=== PATIENT | male | born 1965 | race Caucasian/White ===

== ENCOUNTER 2023-08-15 11:07 | Outpatient (OUT) | payer BC, SELFPAY ==
--- NOTE | 2023-08-15 11:45 | XR_ITS ---
The [address] [address] Patient Name: MEDINA PEACOCK MRN: [id number] date: 1965 Sex: M Assigned Patient Location: [facility] Current Patient Location: Accession/Order Number: [id number] Exam Date: 08/15/2023 11:40 Report Date: 08/16/2023 06:59 At the request of: SIMON DEWEY Procedure: XR elbow SHREE min 3v EXAM: XR elbow SHREE min 3v HISTORY: Bilateral Elbow Pain COMPARISON: None. TECHNIQUE: Routine views of the XR elbow SHREE min 3v FINDINGS/ XR/XR elbow SHREE min 3v IMPRESSION: 1. No acute fractures. 2. Unremarkable soft tissues. 3. Normal joint spacing. No effusions. Electronically authenticated by: RICHARD BROWN Date: 08/16/2023 06:59
== END 2023-08-15 11:08 | disposition home or self-care (01) ==
LOC: RAD 11:11
PROVIDERS: PCP Orthopaedic Surgery; Visit Provider Orthopaedic Surgery
DX: M25.521 Pain in right elbow (principal); M25.522 Pain in left elbow
CPT/HCPCS: 73080

== ENCOUNTER 2023-10-06 15:11 | Outpatient (OUT) | payer BC, SELFPAY ==
--- NOTE | 2023-10-06 15:15 | MR_ITS ---
The [address] [address] Patient Name: MEDINA PEACOCK MRN: [id number] date: 1965 Sex: M Assigned Patient Location: MRI Current Patient Location: MRI Accession/Order Number: [id number] Exam Date: 10/06/2023 15:35 Report Date: 10/06/2023 17:51 At the request of: KENYA MESA Procedure: MR cervical spine wo/w con MR cervical spine wo/w con, 10/06/2023 3:35 PM EST INDICATION: strain of neck muscle S16.1, cervicalagia M54.2 COMPARISON: This study was compared to the prior CT of the cervical spine dated 03/07/2023. TECHNIQUE: Multiplanar, multisequential MRI images of cervical spine were obtained with without contrast. FINDINGS: There is a status post ACDF of C5-C6 causing magnetic susceptibility artifact that decreases the sensitivity of this study. Please note that MRI is not sensitive for evaluation of the hardware. There is normal physiologic cervical lordosis. The vertebral heights are relatively preserved. The cervicomedullary junction is unremarkable. No definite signal abnormality within the spinal cord is noted. There are mild disc osteophyte complex associated with uncovertebral joint arthrosis from C3 to T1. No significant neuroforaminal narrowing or canal stenosis at the level of C2-C3 is noted. At the level of C3-C4, there is moderate bilateral neuroforaminal narrowing and no canal stenosis. At the level of C4-C5, there is mild bilateral neuroforaminal narrowing and mild canal stenosis. At the level of C5-C6, there is mild bilateral neuroforaminal narrowing and no canal stenosis. At the level of C6-C7, there is mild right and moderate left neuroforaminal narrowing and no canal stenosis. Level of C7-T1 is unremarkable. No definite muscular or ligamentous injury is noted. MR/MR cervical spine wo/w con IMPRESSION: Mild degenerative changes of the cervical spine in particular at C2 C4 and C6-C7. Large heterogeneous right thyroid nodule. Please refer to the ultrasound of thyroid of the same date. Electronically authenticated by: NESSA LOVELACE Date: 10/06/2023 17:51
--- OUTSIDE RECORDS SUMMARY | 2023-10-06 15:15 | XMS_ITS | CCD ---
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 [facility] REASON FOR VISIT (unrecogniz ed section and content) [phone] possible sinus infectionPRESCRIPTION REFILLNo InformationRefillWellnessRefillNo Informationpharmacy changeRefillneck pain FOR RECORDS PERTAINING TO PATIENTS WHO ARE OR HAVE BEEN ENROLLED IN A CHEMICAL DEPENDENCY/SUBSTANCEABUSE PROGRAM, SOME INFORMATION MAY BE OMITTED. This clinical summary was aggregated from multiple sources. Caution should be exercised in using it in the provision of clinical care. This summary normalizes information from multiple sources, and as a consequence, information in this document may materially change the coding, format and clinical context of patient data. In addition, data may be omitted in some cases. CLINICAL DECISIONS SHOULD BE BASED ON THE PRIMARY CLINICAL RECORDS. [facility] [employer] [facility]. provides no warranty or guarantee of the accuracy or completeness of information in this document.
--- NOTE | 2023-10-06 15:16 | US_ITS ---
[address] [address] Patient Name: MEDINA PEACOCK MRN: [id number] date: 1965 Sex: M Assigned Patient Location: MRI Current Patient Location: Accession/Order Number: [id number] Exam Date: 10/06/2023 15:20 Report Date: 10/10/2023 10:59 At the request of: KENYA MESA Procedure: US thyroid EXAMINATION: US thyroid HISTORY: thyroid nodule E04.1 COMPARISON: Ultrasound thyroid 01/29/2022 FINDINGS: RIGHT LOBE: Thick-walled 4.4 x 2.7 x 3.4 cm fluid-filled cyst/mass within mid right lobe, TR 3. Lobe size: 6.8 x 2.8 x 3.7 cm LEFT LOBE: Normal size and echotexture. Lobe size: 4.8 x 1.4 x 1.4 cm ISTHMUS: Normal size and echotexture. Thickness: 2 mm US/US thyroid IMPRESSION: 1. Slight increase in size versus technical variation of the 4.4 cm TR 3 partially cystic and partially solid lesion within the right lobe. By size criteria ultrasound-guided fine-needle aspiration should be considered. TR3 (mildly suspicious): > 1.5 cm, follow-up ultrasound in 1, 3, and 5 years. > 2.5 cm, fine needle aspiration. Electronically authenticated by: SIMON DURAN Date: 10/10/2023 10:59
== END 2023-10-06 15:12 | disposition home or self-care (01) ==
LOC: MRI 15:11
PROVIDERS: PCP Internal Medicine; Visit Provider Internal Medicine
DX: S16.1XXA Strain of muscle, fascia and tendon at neck level, initial encounter (principal); M54.2 Cervicalgia; Z98.1 Arthrodesis status; E04.1 Nontoxic single thyroid nodule
CPT/HCPCS: 72156; 76536; A9575

== ENCOUNTER 2023-10-14 08:35 | Outpatient (OUT) | payer BC, SELFPAY ==
--- OUTSIDE RECORDS SUMMARY | 2023-10-14 09:01 | XMS_ITS | CCD ---
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 Referral Reason Patient being referr ed for neck discomfort Diagnosis 1 Strain of neck muscl e, initial encounter (S16.1XXA) Diagnosis 2 Cervical spondylosis (M47.812) Referral Organization [facility] Referring Provider First Name Andres Referring Provider Last Name Yemi Referring Provider Specialty Internal Me dicine Referred Organization [facility] Referred Address [address] [place], [place],[address] Referred Provider Specialty Pain Medicin e Referral Priority Routine General Notes Mr. Trujillo has hx o f ACDF w/ recent increase in neck pain. His MRI does not correlate with his symptoms and is being referred for treatment Clinical Notes Include MRI neck Additional Source Comments (unrecognized sect ion and content) No Status Records FoundNo Status Records Found INFORMATION SOURCE (unrecogn ized section and content) DATE CREATED AUTHOR 10/22/2021 [facility] DATE CREATED AUTHOR AUTHOR'S ORGANIZ ATION 03/18/2023 [facility] REASON FOR VISIT (unrecogniz ed section and content) [phone] possible sinus infectionPRESCRIPTION REFILLNo InformationRefillWellnessRefillNo Informationpharmacy changeRefillneck painneck painMRI resultsNo Information FOR RECORDS PERTAINING TO PATIENTS WHO ARE [...] BE BASED ON THE PRIMARY CLINICAL RECORDS. [facility]. provides no warranty or guarantee of the accuracy or completeness of information in this document.
[2023-10-14 09:04] LABS: Basophils Absolute Auto 0.1 10^3/uL (0.0-0.1); Eosinophils Absolute Auto 0.1 10^3/uL (0.0-0.7); Eosinophils Percent Auto 2.1 % (0.9-7.0); Hematocrit 42.6 % (42.0-54.0); Hemoglobin 14.6 g/dL (14.0-18.0); Immature Granulocytes Abs Auto 0.01 10^3/uL (0.00-0.03); Immature Granulocytes Pct Auto 0.2 % (0.0-0.5); Lymphocytes Absolute Auto 1.6 10^3/uL (1.2-3.8); Lymphocytes Percent Auto 31.3 % (20.5-60.0); Mean Corpuscular HGB Conc 34.3 g/dL (29.9-35.2); Mean Corpuscular Volume 84.7 fL (80.0-94.0); Monocytes Absolute Auto 0.4 10^3/uL (0.3-0.8); Neutrophils Percent Auto 58.4 % (43.0-75.0); Platelet Count 207 10^3/uL (150-450); Red Blood Count 5.03 10^6/uL (4.70-6.10); Red Cell Distribution Width 12.2 % (11.0-15.0); White Blood Count 5.1 10^3/uL (4.0-11.0)
[2023-10-14 09:06] LABS: Bilirubin Urine NEGATIVE (NEGATIVE); Blood Urine TRACE-I (NEGATIVE); Clarity Urine CLEAR (CLEAR); Color Urine LT. YELLOW (YELLOW); Glucose Urine UA 500 mg/dL (NEGATIVE); Ketones Urine NEGATIVE (NEGATIVE); Leukocyte Esterase Urine NEGATIVE (NEGATIVE); Nitrite Urine NEGATIVE (NEGATIVE); Protein Urine NEGATIVE (NEG/TRACE); Specific Gravity Urine 1.025 (1.005-1.025); Urobilinogen Urine 0.2 EU/dL (0.2-1.0)
[2023-10-14 10:27] LABS: Microalbumin Urine Random <1.3 mg/dL (<=30.0)
[2023-10-14 10:53] LABS: Estimated Average Glucose 192 mg/dL; Glycohemoglobin A1C 8.3 % (4.5-6.2)
[2023-10-14 13:14] LABS: Alanine Aminotransferase 106 U/L (16-63); Albumin Globulin Ratio 1.1; Albumin Level 3.9 g/dL (3.4-5.0); Alkaline Phosphatase 79 U/L (46-116); Anion Gap 10.3; Aspartate Amino Transferase 37 U/L (15-37); BUN Creatinine Ratio 17.8; Bilirubin Total 0.6 mg/dL (0.2-1.0); Calcium 9.4 mg/dL (8.5-10.1); Carbon Dioxide 28.2 mmol/L (21.0-32.0); Chloride 104 mmol/L (98-107); Chol HDL Ratio 3.2; Cholesterol 166 mg/dL (<=200); Estimated GFR (African America >60 (>=60); Estimated GFR (Non-African Ame >60 (>=60); Globulin 3.4 g/dL; Glucose 188 mg/dL (74-106); HDL Cholesterol 52 mg/dL (40-60); LDL Cholesterol Calculated 94.4 mg/dL; Potassium 4.5 mmol/L (3.5-5.1); Sodium 138 mmol/L (136-145); Thyroid Stimulating Hormone 2.266 uIU/mL (0.358-3.740); Total Protein 7.3 g/dL (6.4-8.2); Triglycerides 98 mg/dL (<=150); VLDL CHOLESTEROL 19.6 mg/dL
== END 2023-10-14 08:36 | disposition home or self-care (01) ==
LOC: LAB 08:39
PROVIDERS: PCP Internal Medicine; Visit Provider Internal Medicine
DX: Z00.00 Encounter for general adult medical examination without abnormal findings (principal); R30.0 Dysuria; E04.1 Nontoxic single thyroid nodule
CPT/HCPCS: 36415; 80053; 80061; 81003; 82043; 83036; 84443; 85025; G0103

== ENCOUNTER 2023-10-17 08:06 | Outpatient (RCR) | payer BC, SELFPAY | END 2023-12-20 13:35 | disposition home or self-care (01) | LOC: PT 08:06 | PROVIDERS: PCP Internal Medicine; Visit Provider Internal Medicine | DX: M54.2 Cervicalgia (principal); M47.9 Spondylosis, unspecified | CPT/HCPCS: 97110; 97112; 97140; 97162 ==

== ENCOUNTER 2024-02-21 08:16 | Outpatient (OUT) | payer BC, SELFPAY ==
--- OUTSIDE RECORDS SUMMARY | 2024-02-21 08:34 | XMS_ITS | CCD ---
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 discussed at length safety and security of RX and medications. Due to the high risk nature of this patient's pain medication regimen, frequent office visit refill appointments (every 1-3 months) are medically necessary to monitor for an addiction disorder. Prescribed medication that requires intensive monitoring for toxicity Tramadol. OARRS and most recent UDS were reviewed, discussed and appropriate for medications prescribed. Tramadol pill count completed at today's office visit. Dose: 50 mg 1 tablet three times daily as needed for pain Quantity Dispensed 90 Quantity Remaining 33 Fill date on prescription bottle 11/01/2023 Appropriate-yes Patient educated to bring medication to every office visit. Tramadol was refilled at today's office visit. At this time it does appear that the patient s pain is under adequate control with conservative care. It is felt that we should continue this approach and continue to monitor these symptoms and address them again in the future if they become more problematic. This approach was discussed with the patient and they are in agreement. The spine model was demonstrated and MRI was reviewed and used to explain the condition. Chronic conditions not treated during this visit that affected my overall medical decision making: Anxiety OARRS: Reviewed. Scribe Statement: Scribed for and in the presence of BHASKAR STEPHENS PA-C by Lindsey Mauro CNA. Provider Statement: I, BHASKAR STEPHENS PA-C, personally performed the services described in the documentation, as scribed by Lindsey Mauro CNA in my presence, and it is both accurate and complete. Lindsey Mauro CNA 12/14/23 1342 Bhaskar Stephens PA-C 12/14/23 1420 documented in this encounter [facility] [employer] 11-14-2023 Evaluation note Encounter Date Diagnosis Assessment Notes Nov, COVID- 19 (ICD-1 0 - U07.1) [employer] Other 02-05-2024 Evaluation note* Encounter Date Diagnosis Assessment Notes Treatment Notes Treatment Clinical Notes Nov, Acute non-recurrent maxillary sinusitis (ICD-10 - J01.00) Instructed to use Robitussin or Mucinex for cough, saline or Flonase NS for congestion, Tylenol for pain and fever. Nov, Contact with and (suspected) exposure to covid-19 (ICD-10 - Z20.822) Recommend testing for COVID and to call if positive. Self isolate at home. - Cannot work - avoid contact with others - avoid pets - wipe counters, door knobs if touched - if can't avoid leaving home, must wear mask to protect others - need to stay isolated for 10 days from onset of symptoms - to discontinue isolation must be 5 days AND must be without fever for 24 hours AND symptoms must be improving. Always wear a mask in public places for complete 10 days [employer] Other 01-31-2024 Evaluation note* Encounter Date Diagnosis Assessment Notes Treatment Notes Treatment Clinical Notes Oct, Type 2 diabetes mellitus with hyperglycemia, without long-term current use of insulin (ICD-10 - E11.65) [employer] Other 01-29-2024 Evaluation note* Encounter Date Diagnosis Assessment Notes Treatment Notes Treatment Clinical Notes Oct, Type 2 diabetes mellitus with hyperglycemia, without long-term current use of insulin (ICD-10 - E11.65) [employer] Other 01-24-2024 Evaluation note* Encounter Date Diagnosis Assessment Notes Treatment Notes Treatment Clinical Notes Oct, Type 2 diabetes mellitus with hyperglycemia, without long-term current use of insulin (ICD-10 - E11.65) [employer] Other 01-23-2024 Miscellaneous Notes* Telephone Encounter - Krystal Pierre RN - 11/01/2023 11:15 AM EST Last Office Visit: 08/17/2023 Next Office Visit: 11/16/2023 Last Urine Drug Screen: Lab Results Component Value Date BENZOSCRN Negative 05/17/2023 OARRS appropriate [id number] Telephone encounter Note* Telephone Encounter - Krystal Pierre RN - 11/01/2023 11:15 AM EST Last Office Visit: 08/17/2023 Next Office Visit: 11/16/2023 Last Urine Drug Screen: Lab Results Component Value Date BENZOSCRN Negative 05/17/2023 OARRS appropriate [facility] [employer] [id number] Evaluation note* Encounter Date Diagnosis Assessment Notes Treatment Notes Treatment Clinical Notes Oct, Controlled type 2 diabetes mellitus with hyperglycemia, without long-term current use of insulin (ICD-10 - E11.65) [employer] Other 01-08-2024 Evaluation note* Encounter Date Diagnosis Assessment Notes Treatment Notes Treatment Clinical Notes Oct, Type 2 diabetes mellitus with hyperglycemia, without long-term current use of insulin (ICD-10 - E11.65) [employer] Other 01-07-2024 Evaluation note* Encounter Date Diagnosis Assessment Notes Treatment Notes Treatment Clinical Notes Oct, Thyroid nodule (ICD-10 - E04.1) Thyroid US: - 4.5 x 3.6 x 2.7cm 2015 - 3.8 x 3.6 x 2.7cm 3.8cm 2021 - 4.4 x 3.4 x 2.7 2022 [employer] Other 01-05-2024 Evaluation note* Encounter Date Diagnosis Assessment Notes Treatment Notes Treatment Clinical Notes Oct, Type 2 diabetes mellitus with hyperglycemia, without long-term current use of insulin (ICD-10 - E11.65) [employer] Other 01-03-2024 Evaluation note* Encounter Date Diagnosis Assessment Notes Treatment Notes Treatment Clinical Notes Oct, Thyroid nodule (ICD-10 - E04.1) Thyroid US: - 4.5 x 3.6 x 2.7cm 2015 - 3.8 x 3.6 x 2.7cm 3.8cm 2021 - 4.4 x 3.4 x 2.7 2022 Referral to ENT for opinion. Repeat thyroid US in 3-6mo vs repeat FNA [employer] Other 01-02-2024 Evaluation note* Encounter Date Diagnosis Assessment Notes Treatment Notes Treatment Clinical Notes Oct, Thyroid nodule (ICD-10 - E04.1) Thyroid US: - 4.5 x 3.6 x 2.7cm 2015 - 3.8 x 3.6 x 2.7cm 3.8cm 2021 - 4.4 x 3.4 x 2.7 2022 [employer] Other 01-01-2024 Evaluation note* Encounter Date Diagnosis Assessment Notes Treatment Notes Treatment Clinical Notes Oct, Thyroid nodule (ICD-10 - E04.1) Thyroid US: - 4.5 x 3.6 x 2.7cm 2015 - 3.8 x 3.6 x 2.7cm 3.8cm 2021 - 4.4 x 3.4 x 2.7 2022 [employer] Other 12-18-2023 Evaluation note* Encounter Date Diagnosis Assessment Notes [...] use, the patient reduces the risk for SD, CVA, HTN, cardiac dysrhythmias and sudden cardiac [...] S/P cervical spinal fusion (ICD-10 - Z98.1) [employer] Other 08-17-2023 Evaluation note* Encounter Date Diagnosis Assessment Notes Treatment Notes Treatment Clinical Notes May, Lateral epicondylitis, right elbow (ICD-10 - M77.11) [employer] Other 06-30-2023 Evaluation note* Encounter Date Diagnosis Assessment Notes Treatment Notes Treatment Clinical Notes Mar, Pure hypercholestero lemia (ICD-10 - E78.00) [employer] Other 04-28-2023 NotePROCEDURE: XR FOOT LT MIN 3 VIEWS HISTORY: Pain ; left heel pain for 6 weeks COMPARISON: None. FINDINGS: BONES:No fracture, acute abnormality, or significant arthropathy. SOFT TISSUES:No visible soft tissue swelling. EFFUSION:None visible. OTHER: Negative. IMPRESSION: 1. Normal examination. Electronically authenticated by: JOHN RED Date: 2023-02-04 07:[address] [place], [place] 3354304-03-2023 Evaluation note* Encounter Date Diagnosis Assessment Notes [...] use, the patient reduces the risk for SD, CVA, HTN, cardiac dysrhythmias and sudden cardiac [...] (prost ate specific antigen) (ICD-10 - Z12.5) [employer] Other 03-08-2023 Evaluation note* Encounter Date Diagnosis Assessment Notes Treatment Notes Treatment Clinical Notes Dec, Controlled type 2 diabetes mellitus with hyperglycemia, without long-term current use of insulin (ICD-10 - E11.65) [employer] Other 02-23-2023 Evaluation note* Encounter Date Diagnosis [...] [ ] Infections may elevate BS temporarily [employer] Other 02-23-2023 Evaluation note* Encounter Date Diagnosis Assessment Notes Treatment Notes Treatment Clinical Notes Nov, Acute bronchitis due to other specified organisms (ICD-10 - J20.8) [employer] Other 07-15-2021 NoteChief Complaint referral for suprapubic [...] Stopped age 49 Years., (more content not included)...[facility] SystemComment on above:Result Comment: Electronically Signed By: KIYA DIAZ, Reji oMntoya\Date and Time Signed: 04/23/21 10:32 [id number] NoteGastroenterology Upper Endoscopy, Adult Upper endoscopy is [...] including vitamins, herbs, eye drops, creams, and jlxb-ubz-lqmsxic medicines. ? Any problems you or family [...] tells you to take them. ? Taking hhgz-hac-xnfhamt medicines, vitamins, herbs, and supplements. General instructions [...] Document Released: 09/23/2001 [employer] (more content not included)...[facility] Other Evaluation note* Diagnosis Right bicipital tenosynovitis Impingement syndrome of right shoulder region [facility] Diagnosis Chronic, continuous use of opioids- Primary Right bicipital tenosynovitis Impingement syndrome of right shoulder region documented in this encounter [facility] [employer] SystemHistory general Narrative - Reported* Type Description Date [...] Colonoscopy 11/2015 Hospitalization History see surgical history [employer] Other History general Narrative - Reported* Type [...] Colonoscopy 11/2015 Hospitalization History see surgical history [employer] Other InstructionsNot on filedocumented in this encounter [facility] SystemInstructionsNot on filedocumented in this encounter [facility] SystemInstructionsNot on filedocumented in this encounter [facility] SystemReason for referral (narrative)* Reason Referral for right s ided thyroid mass Diagnosis 1 Thyroid nodule (E04. 1) Referral Organization [facility] simran Referring Provider First Name Andres Referring Provider Last Name Yemi Referring Provider Specialty Internal Me dicine Referred Organization [facility] Referred Provider Carolann Dasilva Referred Address ,[place], [place],[address] Referred Provider Specialty Ear, Nose an d Throat Referral Priority Routine General Notes Mr. Trujillo is being referred for evaluation of a right sided thyroid mass. This has been present since 2015 without significant change. It has been recommended, that a repeat FNA be scheduled. I am referring Mr. Trujillo for an opinion on FNA vs further observation. Clinical Notes Include all three th yroid US reports [employer] Other Summary Purpose Family History No Family History Records FoundNo Family History Records FoundNo Family History Records FoundNo Family History Records Found Advance Directives No Advanced Directives Records FoundNo Advanced Directives Records FoundNo Advanced Directives Records FoundNo Advanced Directives Records Found Reason for Referral Reason *FU 10/18 Patient being referred for neck discomfort Diagnosis 1 Strain of neck muscl e, initial encounter (S16.1XXA) Diagnosis 2 Cervical spondylosis (M47.812) Referral Organization [facility] Referring Provider First Name Andres Referring Provider Last Name Yemi Referring Provider Specialty Internal Me dicine Referred Organization [facility] Referred Provider Cade Stephenson Referred Address [address] [place], [place],[address] Referred Provider Specialty Pain Medicin e Referral Priority Routine General Notes Mr. Trujillo has hx o f ACDF w/ recent increase in neck pain. His MRI does not correlate with his symptoms and is being referred for treatment La Nena Carrion 10/11/2023 07:19:30 AM >received today, attachments made, notes locked, referral faxed Clinical Notes Include MRI neck f: [id number] Reason Patient being referr ed for neck discomfort Diagnosis 1 Strain of neck muscl e, initial encounter (S16.1XXA) Diagnosis 2 Cervical spondylosis (M47.812) Referral Organization [facility] Referring Provider First Name Andres Referring Provider Last Name Yemi Referring Provider Specialty Internal [facility] Referred Organization [facility] Referred Address [address] [place], [place],[address] Referred Provider Specialty Pain Medicin e Referral Priority Routine General Notes Mr. Trujillo has hx o f ACDF w/ recent increase in neck pain. His MRI does not correlate with his symptoms and is being referred for treatment Clinical Notes Include MRI neck Additional Source Comments (unrecognized sect ion and content) No Status Records FoundNo Status Records FoundNo Status Records FoundNo Status Records Found INFORMATION SOURCE (unrecogn ized section and content) DATE CREATED AUTHOR 10/22/2021 [facility] DATE CREATED AUTHOR AUTHOR'S ORGANIZ ATION 03/18/2023 [facility] DATE CREATED AUTHOR AUTHOR'S ORGANIZ ATION 12/22/2023 [facility] DATE CREATED AUTHOR AUTHOR'S ORGANIZ ATION 12/28/2023 [facility] Specialists EPIC REASON FOR VISIT (unrecogniz ed section and content) Reason Onset Date Comments Med Refill 11/01/2023 Care Teams (unrecognized sec tion and content) [employer] 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 [employer] provides no warranty or guarantee of the accuracy or completeness of information in this document.
[2024-02-21 09:19] LABS: Alanine Aminotransferase 78 U/L (16-63); Albumin Globulin Ratio 1.2; Albumin Level 3.9 g/dL (3.4-5.0); Alkaline Phosphatase 93 U/L (46-116); Anion Gap 14.7; Aspartate Amino Transferase 37 U/L (15-37); BUN Creatinine Ratio 21.4; Bilirubin Total 0.8 mg/dL (0.2-1.0); Calcium 9.4 mg/dL (8.5-10.1); Carbon Dioxide 26.2 mmol/L (21.0-32.0); Chloride 104 mmol/L (98-107); Estimated GFR (African America >60 (>=60); Estimated GFR (Non-African Ame >60 (>=60); Globulin 3.3 g/dL; Glucose 175 mg/dL (74-106); Magnesium 2.3 mg/dL (1.8-2.4); Potassium 4.9 mmol/L (3.5-5.1); Sodium 140 mmol/L (136-145); Thyroid Stimulating Hormone 2.351 uIU/mL (0.358-3.740); Total Protein 7.2 g/dL (6.4-8.2)
== END 2024-02-21 08:17 | disposition home or self-care (01) ==
LOC: LAB 08:18
PROVIDERS: PCP Internal Medicine; Visit Provider Internal Medicine
DX: R25.2 Cramp and spasm (principal); R53.83 Other fatigue
CPT/HCPCS: 36415; 80053; 83735; 84443

== ENCOUNTER 2024-04-27 13:45 | Outpatient (RCR) | payer BC, SELFPAY | END 2024-06-14 07:55 | disposition home or self-care (01) | LOC: PT 13:45 | PROVIDERS: PCP Internal Medicine; Visit Provider Internal Medicine | DX: M54.2 Cervicalgia (principal) | CPT/HCPCS: 20561; 97110; 97140; 97162 ==

== ENCOUNTER 2024-10-08 09:35 | Outpatient (OUT) | payer BC, SELFPAY ==
--- OUTSIDE RECORDS SUMMARY | 2024-10-08 09:53 | XMS_ITS | CCD ---
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 above: Performed By: #### L IPA, LIVER #### [facility] [address] [place] [address] Dr. Castillo Diamond AST [Catalytic activity/Vol] 26 U/L Normal 15-37 [facility] Comment on above: Performed By: #### L IPA, LIVER #### [facility] [address] [place] [address] Dr. Castillo Diamond BILI, CONJUGATED 0.1 mg/dL Normal 0.0-0.2 [facility] Comment on above: Performed By: #### L IPA, LIVER #### [facility] [address] [address] [address] Castillo Diamond Bilirubin [Mass/Vol] 0.5 mg/dL Normal 0.2-1.0 [facility] Comment on above: Performed By: #### L IPA, LIVER #### [facility] [address] [address] [address] Castillo Diamond Globulin (S) [Mass/Vol] 3.8 g/dL Normal [facility] Comment on above: Performed By: #### L IPA, LIVER #### [facility] [address] [place], [place] [address] Dr. Castillo Diamond Protein [Mass/Vol] 7.7 g/dL Normal 6.4-8.2 [facility] Comment on above: Performed By: #### L IPA, LIVER #### [facility] [address] [place], [place] [address] Dr. Castillo Diamond XR HAND RT MIN [...] ANGELO MTZ Date: 2022-05-19 15:04 Normal [facility] General Surgery Office/Clini c Noteon 06-13-2021 [...] virus vaccine, live, trivalent 08/13/2019 Recorded Normal [facility] Comment on above: Result Comment: Elec tronically Signed By: KIYA DIAZ, Reji Montoya\Date and Time Signed: 06/13/21 09:00 EDT Ambulatory Clinical Summaryo n 06-05-2021 Ambulatory Clinical Summary {[id number]}CD:6143 68 Normal [facility] Outside Colonoscopyon 2020 Outside Colonoscopy [id number]#[id number]:127 Normal [facility] Pathology Noteon 05-26-2021 Pathology Note [id number]:127 Normal [facility] Pathology Noteon 05-22-2021 Pathology Note [id number]#[id number]:127 [facility] Consent for Procedure/Surger yon 04-23-2021 Consent for Procedure/Surgery [id number]:127 Normal [facility] Immunization Recordson 04-23 Immunization Records [id number]#[id number]:127 Normal [facility] Ambulatory Clinical Summaryo n 04-22-2021 Ambulatory Clinical Summary {[id number]}CD:6143 68 Normal [facility] Vital Signs Date Time Vital Sign Value Performing Clinician Facility 08-08-2024 09:29-0400 Body height 185.4 cm Bhaskar Stephens PA-C Work Phone: [facility] 08-08-2024 09:29-0400 Body mass index (BMI) [Ratio] 30.61 kg/m2 Bhaskar Verhoff PA-C Work Phone: [facility] 08-08-2024 09:29-0400 Body weight 105.23 kg Bhaskar Verhoff PA-C Work Phone: [facility] 08-08-2024 09:29-0400 Diastolic blood pressure 87 mm[Hg] Bhaskar Verhoff PA-C Work Phone: [facility] 08-08-2024 09:29-0400 Heart rate 66 /min Bhaskar Verhoff PA-C Work Phone: [facility] 08-08-2024 09:29-0400 SaO2% (BldA) [Mass fraction] 99 % Bhaskar Verhoff PA-C Work Phone: [facility] 08-08-2024 09:29-0400 Systolic blood pressure 139 mm[Hg] Bhaskar Verhoff PA-C Work Phone: [facility] 06-26-2024 08:57-0400 Body height 182.88 cm [facility] 06-26-2024 08:57-0400 Body mass index (BMI) [Ratio] 31.6 kg/m2 [facility] 06-26-2024 08:57-0400 Body weight 105.68 kg [facility] 06-26-2024 08:57-0400 Diastolic blood pressure 80 mm[Hg] [facility] 06-26-2024 08:57-0400 Heart rate 73 /min [facility] 06-26-2024 08:57-0400 Respiratory rate 12 /min [facility] 06-26-2024 08:57-0400 Systolic blood pressure 130 mm[Hg] [facility] 12-14-2023 12:55-0500 Body height 185.4 cm Bhaskar Verhoff PA-C Work Phone: [facility] 12-14-2023 12:55-0500 Body mass index (BMI) [Ratio] 31.8 kg/m2 Bhaskar Verhoff PA-C Work Phone: [facility] 12-14-2023 12:55-0500 Body weight 109.32 kg Bhaskar Verhoff PA-C Work Phone: [facility] 12-14-2023 12:55-0500 Diastolic blood pressure 93 mm[Hg] Bhaskar Verhoff PA-C Work Phone: [facility] 12-14-2023 12:55-0500 Heart rate 82 /min Bhaskar Verhoff PA-C Work Phone: [facility] 12-14-2023 12:55-0500 Respiratory rate 16 /min Bhaskar Verhoff PA-C Work Phone: [facility] 12-14-2023 12:55-0500 SaO2% (BldA) [Mass fraction] 99 % Bhaskar Verhoff PA-C Work Phone: [facility] 12-14-2023 12:55-0500 Systolic blood pressure 135 mm[Hg] Bhaskar Verhoff PA-C Work Phone: [facility] 10-16-2023 18:45-0500 Body height 182.88 cm Andres Ball Other [facility] Other 09-26-2023 15:45-0500 Body height 182.88 cm Andres Ball Other [facility] Other 09-26-2023 15:45-0500 Body mass index (BMI) [Ratio] 32.79 kg/m2 Andres Ball Other [facility] Other 09-26-2023 15:45-0500 Body weight 109.68 kg Andres Ball Other [facility] Other 09-26-2023 15:45-0500 Diastolic blood pressure 82 mm[Hg] Andres Ball Other [facility] Other 09-26-2023 15:45-0500 Systolic blood pressure 122 mm[Hg] Andres Ball Other [facility] Other 01-10-2023 11:00-0400 Body height 182.88 cm Andres Ball Other [facility] Other 01-10-2023 11:00-0400 Body mass index (BMI) [Ratio] 33.2 kg/m2 Andres Ball Other [facility] Other 01-10-2023 11:00-0400 Body weight 111.04 kg Andres Ball Other [facility] Other 01-10-2023 11:00-0400 Diastolic blood pressure 82 mm[Hg] Andres Ball Other [facility] Other 01-10-2023 11:00-0400 Respiratory rate 12 /min Andres Ball Other [facility] Other 01-10-2023 11:00-0400 Systolic blood pressure 122 mm[Hg] Andres Ball Other [facility] Other Encounters Encounter Date Encounter Type Care Provider Facility Start: 08-22-2024 End: 08-30-2024 Telephone encounter Suzi Caban RN [facility] Start: 08-08-2024 End: 08-08-2024 Office outpatient visit 25 minutes Bhaskar Stephens PA-C Work Phone: [facility] Comment on above: Biceps tendinitis of right upper extremity (Primary Dx); Impingement syndrome of right shoulder Start: 08-08-2024 End: [facility]: 08-06-[facility]24 End: 08-07-2024 Refill Irene Bryson RN [facility] Start: 07-24-2024 End: 07-24-2024 Refill Irene Bryson RN [facility] Comment on above: Right bicipital teno synovitis; Impingement syndrome of right shoulder region Start: 06-26-2024 End: 06-26-2024 ambulatory [facility] Work Phone: Start: 06-26-2024 End: 06-26-2024 Patient encounter procedure [facility] Work Phone: Start: 05-09-2024 End: 05-09-2024 ambulatory [facility] Start: 12-27-2023 End: 12-27-2023 ambulatory CAROLANN H VIDYA Not Available Start: 12-14-2023 End: 12-14-2023 ambulatory [facility] Start: 12-14-2023 Telephone encounter Lindsey Zunilda COPE [facility] Start: 12-14-2023 End: 12-14-2023 Office outpatient visit 25 minutes Bhaskar Stephens PA-C Work Phone: [facility] Comment on above: Chronic, continuous use of opioids (Primary Dx); Right bicipital tenosynovitis; Impingement syndrome of right shoulder region Start: 12-14-2023 End: 12-14-2023 ambulatory [facility] Start: 11-14-2023 End: 11-14-2023 ambulatory Andres Bragg [facility] Other Start: 11-14-2023 Office outpatient vi sit 15 minutes Andres Bragg [facility] Start: 11-14-2023 Telephone encounter Andres Bragg [facility] Start: 11-10-2023 End: 11-10-2023 ambulatory Andres Bragg Other [facility] Other Start: 11-10-2023 Telephone encounter Andres NIELSEN [facility] Start: 11-09-2023 End: 11-09-2023 ambulatory Andres Ball Other [facility] Other Start: 11-09-2023 Telephone encounter Andres Ball [facility] Start: 11-07-2023 End: 11-07-2023 ambulatory Andres Ball Other [facility] Other Start: 11-07-2023 Telephone encounter Andres Ball [facility] Start: 11-02-2023 End: 11-02-2023 ambulatory Andres Ball Other [facility] Other Start: 11-02-2023 Telephone encounter Andres Bragg [facility] Start: 11-01-2023 David Pierre RN [facility] Comment on above: Right bicipital teno synovitis; Impingement syndrome of right shoulder region Start: 10-19-2023 End: 10-19-2023 ambulatory Andres Ball Other [facility] Other Start: 10-19-2023 Telephone encounter Andres Ball [facility] Start: 10-17-2023 End: 10-17-2023 ambulatory Andres Ball Other [facility] Other Start: 10-17-2023 Telephone encounter Andres Ball [facility] Start: 10-16-2023 End: 10-16-2023 ambulatory Andres Ball Other [facility] Other Start: 10-16-2023 Telephone encounter Andres Ball [facility] Start: 10-14-2023 End: 10-14-2023 ambulatory Andres Ball Other [facility] Other Start: 10-14-2023 Telephone encounter Andres Ball [facility] Start: 10-12-2023 End: 10-12-2023 ambulatory Andres Bragg Other [facility] Other Start: 10-12-2023 Telephone encounter Andres Bragg [facility] Start: 10-11-2023 End: 10-11-2023 ambulatory Andres Bragg Other [facility] Other Start: 10-11-2023 Telephone encounter Andres Ball [facility] Start: 10-10-2023 End: 10-10-2023 ambulatory Andres Bragg Other [facility] Other Start: 10-10-2023 Telephone encounter Andres Bragg [facility] Start: 10-07-2023 End: 10-07-2023 ambulatory Andres Bragg Other [facility] Other Start: 10-07-2023 Telephone encounter Andres Ball [facility] Start: 09-26-2023 End: 09-26-2023 ambulatory Andres Bragg Other [facility] Other Start: 09-26-2023 Office outpatient vi sit 25 minutes Andres Bragg [facility] Start: 06-14-2023 End: 06-14-2023 ambulatory Andres Bragg [facility] Other Start: 06-14-2023 Telephone encounter Andres Bragg [facility] Start: 05-26-2023 End: 05-26-2023 ambulatory Andres Bragg Other [facility] Other Start: 05-26-2023 Telephone encounter Andres Ball [facility] Start: 04-08-2023 End: 04-08-2023 ambulatory Andres Yemi Other [facility] Other Start: 04-08-2023 Telephone encounter Andres Bragg [facility] Start: 03-07-2023 End: 03-07-[address] ANDRES BRAGG Facility:[facility] Start: 02-10-2023 ambulatory TROY Yarbrough y:[facility] Start: 02-03-2023 End: 02-04-[address] ANDRES BRAGG Facility:[facility] Start: 01-10-2023 End: 01-10-2023 ambulatory Andres Bragg [facility] Other Start: 01-10-2023 Encounter for genera l adult medical examination without abnormal findings Andres Bragg [facility] Start: 01-10-2023 Periodic preventive med est patient 40-64yrs Andres Bragg [facility] Start: 12-15-2022 End: 12-15-2022 ambulatory Andres Bragg [facility] Other Start: 12-15-2022 Telephone encounter Andres Bragg [facility] Start: 12-02-2022 End: 12-02-2022 ambulatory Andres Bragg [facility] Other Start: 12-02-2022 Office outpatient vi sit 15 minutes Andres Bragg [facility] Start: 12-02-2022 Telephone encounter Andres Bragg [facility] Start: 10-14-2022 End: 10-15-[address] ANDRES BRAGG Facility:[facility] Start: 09-24-2022 End: 09-25-[address] ANDRES BRAGG Facility:[facility] Start: 09-17-2022 End: 09-18-[address] ANDRES BRAGG Facility:[facility] Start: 05-19-2022 End: 05-19-2022 ambulatory JIM SHORT . Facility:[facility] Plan of Treatment Date Care Activity Detail Author Start: 05-19-2032 DTaP,Tdap and Td Vac cines (2 - Tdap) DTaP,Tdap and Td Vaccines (2 - Tdap) [facility] Start: 08-08-2025 Adult BMI Screening Adult BMI Screen ing [facility] Start: 08-08-2025 Tobacco Screening Tobacco Screening [facility] Start: 05-09-2025 Adult BMI Screening Adult BMI Screen ing [facility] Start: 05-09-2025 Tobacco Screening Tobacco Screening [facility] Start: 12-13-2024 Adult BMI Screening Adult BMI Screen ing [facility] Start: 12-13-2024 Tobacco Screening Tobacco Screening [facility] Start: 11-14-2024 End: 11-14-2024 Patient encounter procedure 11/14/2024 9:30 AM EST Office Visit [facility] [address] [place] [address] Bhaskar Stephens PA-C [address] [place] [address] [facility] Start: 08-17-2024 Adult BMI Screening Adult BMI Screen ing [facility] Start: 08-17-2024 Tobacco Screening Tobacco Screening [facility] Start: 08-08-2024 End: 08-08-2024 Patient encounter procedure 08/08/2024 9:30 AM EDT Office Visit [facility] [address] [place] [id number] Bhaskar Stephnes PA-C [address] [place] [address] [facility] Start: 06-10-2024 COVID-19 Vaccine ( season) COVID-19 Vaccine ( season) [facility] Start: 06-10-2024 COVID-19 Vaccine ( season) COVID-19 Vaccine ( season) [facility] Start: 06-10-2024 Influenza vaccination Influenza Vacc ine [facility] Start: 03-14-2024 End: 03-14-2024 Patient encounter procedure 03/14/2024 9:30 AM EDT Office Visit [facility] [address] [place] [id number] Bhaskar Stephens PA-C [address] [place] [address] [facility] Start: 11-16-2023 End: 11-16-2023 Patient encounter procedure 11/16/2023 8:30 AM EST Office Visit [facility] [address] [place] [id number] Bhaskar Stephens, ATIF [address] [place] [address] [facility] Start: 06-10-2023 COVID-19 Vaccine ( season) COVID-19 Vaccine ( season) [facility] Start: 06-10-2023 Influenza vaccination Influenza Vacc ine [facility] Start: 2014 Administration of varicella zoster vaccine Zoster (Shingles) Vaccine (1 of 2) [facility] Start: 1982 Adult BMI Follow Up Plan Adult BMI Follow Up Plan [facility] Start: 1976 Depression Screening Depression Scre ening [facility] Comprehensive metabo lic 2000 panel - Serum or Plasma [facility] End: 08-08-2025 Controlled Substance Monitoring, U Controlled Substance Monitoring, U Lab Routine Biceps tendinitis of right upper extremity Impingement syndrome of right shoulder 1 Occurrences starting 08/08/2024 until 08/08/2025 [facility] Work Phone: Comment on above: 1 Occurrences starti ng 08/08/2024 until 08/08/2025 Microalbumin [Mass/volume] in Urine [facility] Immunizations Immunization Date Immunization Notes Care Provider Fa cilimerlin 06-26-2024 influenza, seasonal, injectable, preservative free [facility] 08-18-2023 influenza virus vaccine, unspecified formulation Irene Bryson RN [facility] 07-29-2022 influenza virus vaccine, split virus (incl. purified surface antigen) Andres Bragg Other [facility] Other 07-29-2022 influenza, injectabl e, quadrivalent, preservative free Andres Bragg Other [facility] 07-29-2022 influenza virus vaccine, unspecified formulation Krystal Pierre RN [facility] 05-19-2022 diphtheria, tetanus toxoids and acellular pertussis vaccine, unspecified formulation Andres Bragg Other [facility] 07-22-2021 influenza virus vaccine, split virus (incl. purified surface antigen) Andres Bragg Other [facility] Other 07-22-2021 influenza virus vaccine, unspecified formulation [facility] 01-13-2021 COVID-19 Vaccine Pfi zer - Documentation Purposes Only Andres Bragg Other [facility] 12-22-2020 COVID-19 Vaccine Pfi zer - Documentation Purposes Only Andres Bragg Other [facility] 07-26-2018 pneumococcal polysaccharide vaccine, 23 valent Andres Bragg Other [facility] 06-10-2016 influenza virus vaccine, split virus (incl. purified surface antigen) Andres Bragg Other [facility] Other 06-10-2016 influenza virus vaccine, unspecified formulation [facility] Payers Date Payer Category Payer [facility] [id number] 2019 Unknown [id number] 2003 Worker's Compensation 1.2.84 [id number] 2003 Unknown [id number] 1964 Unknown [id number] [id number]. 2.593 1964 Unknown [id number] 2.16.840.1.379659.3.579. 2.593 1964 Unknown [id number] 2.16.840.1.793782.3.579. 2.593 1964 Unknown [id number] 2.16.840.1.272188.3.579. 2.593 1964 Unknown [id number] 2.16.840.1.037260.3.579. 2.593 1964 Unknown [id number] 2.16.840.1.320632.3.579. 2.593 1964 Unknown [id number] 2.16.840.1.006223.3.579. 2.593 1964 Unknown [id number] 2.16.840.1.628228.3.579. 2.1259 1964 Unknown [id number] 2.16.840.1.562212.3.579. 2.1286 1964 Unknown [id number] 2.16.840.1.581949.3.579. 2.1286 1964 Unknown [id number] 2.16.840.1.310928.3.579. 2.1286 1964 Unknown [id number] 2.16.840.1.243064.3.579. 2.1286 1959 Medicare [id number] Worker's Comp, Other (unspecified) WORKER'S COMPENSATION - GENERIC PLAN [id number] Worker's Compensation [facility] [id number] Social History Date Type Detail Facility Start: 10-22-2020 End: 08-17-2023 Sex Assigned At [facility] Brendan bhagat [id number] Other Start: 08-17-2023 Tobacco smoking stat [facility] Ex-smoker [facility] History of tobacco use Current smoker [facility] Start: 08-17-2023 Tobacco use and exposure Smokeless tobacco non-user [facility] Start: 08-17-2023 End: 08-08-2024 Alcohol intake Current [facility] (finding[facility] Start: 10-22-2020 End: 08-17-2023 Alcohol intake [facility] Start: 04-14-2017 Alcohol Comment rare [facility] Start: 1965 Sex Assigned At Not on file P [facility] Start: 1965 Sex Assigned At Male F [facility] Start: 05-15-2015 Sex Male (finding) [facility] Medical Equipment Procedure Code Equipment Code Equipment Original Text Equi pment Identifier Dates one touch basic test strips Clinical Notes 04-23-2021 to 08-22-2024 Telephone Encounter - Suzi Caban RN - 08/22/2024 3:35 PM ESTTelephone Encounter - Bhaskar Stephens PA-C - 08/22/2024 3:35 PM Caden Stephens PA-C - 08/08/2024 9:30 AM EDT Note Date & Type Note Facility 08-22-2024 Miscellaneous Notes UDS was collected and sent to lab 08/08/2024. As of 08/14/2024 the order had not been released. Call was placed to [email or web address] lab to follow up. [employer] Installer spoke with Abdirhaman who then spoke with his coworkers in the lab regarding this matter. The urine could not be found. This has been discussed with Lab day habilitation supervisor and Shelly. The new process will be that going forward the dental lab technician will come and warehouse picker specimens directly from our department. Noted documented in this encounter [facility] 08-22-2024 Telephone encounter Note UDS was collected and sent to lab 08/08/2024. As of 08/14/2024 the order had not been released. Call was placed to [facility] lab to follow up. [employer] spoke with Abdirahman who then spoke with his coworkers in the lab regarding this matter. The urine could not be found. This has been discussed with Lab day habilitation supervisor and Shelly. The new process will be that going forward the dental lab technician will come and warehouse picker specimens directly from our department. [facility] 08-22-2024 Telephone encounter Note Noted [facility] 08-08-2024 History of Presen t illness Narrative [facility] [address] [place] [address] Patient: Kerri Trujillo Sex: male : 1965 Age: 58 y.o. PCP: ANDRES BRAGG, DO 08/08/2024 Kerri Trujillo is here for a 3 month follow up for his [employer] work injury. He reports his pain remains about the same. Date of onset of pain: 2002 , pain has lasted greater than 3 months. Chief Complaint Patient presents with Neck Pain Shoulder Pain HPI: Neck Pain This is a chronic [...] The pain is Same all the time. Associated symptoms include headaches and weakness (Wally Shoulders). Pertinent negatives include no chest pain, fever, numbness, pain with swallowing, photophobia, tingling or visual change. He has tried NSAIDs and ice (PT 07/2016 w/ slight relief. Ice/heat, muscle relaxants, NSAIDs, acetaminophen, rest with slight relief. Tramadol w/ moderate relief) for the symptoms. The treatment provided moderate relief. Shoulder Pain The pain is present [...] Tramadol with moderate relief. The treatment provided moderate relief. His past medical history is significant [...] 11/03/2018 Performed by Phani López MD at [facility] CUFF REPAIR Right 2004,'07,'09,'12 3 tears repaired and anchor insert ROTATOR CUFF REPAIR Left 2014 Allergies Allergen Reactions Penicillin Other (See Comments) Codeine Rash Family History Problem Relation Age of Onset Heart disease Father Diabetes Brother Social History Socioeconomic History Marital status: Single Spouse name: Not on file Number of children: Not on file Years of education: Not on file Highest education level: Not on file Occupational History Not on file Tobacco Use Smoking status: Former Smokeless tobacco: Never Vaping Use Vaping status: Never Used Substance and Sexual Activity Alcohol use: Yes Alcohol/week: 0.0 standard drinks of alcohol Comment: rare Drug use: No Sexual activity: Defer Other Topics Concern Not on file Social History Narrative Not on file Social Drivers of Health Financial Resource Strain: Not on file Food Insecurity: No Food Insecurity (08/08/2024) Hunger Screening Food Insecurity - Worry: Never True Food Insecurity - Inability: Never True Transportation Needs: Not on file Physical Activity: Not on file Stress: Not on file Social Connections: Not on file Interpersonal Safety: Not on file Housing Instability: Not on file Review of Systems Constitutional: Negative for chills and fever. HENT: Negative. Eyes: Negative for photophobia. Respiratory: Negative for cough and shortness of breath. Cardiovascular: Negative for chest pain. Gastrointestinal: Negative. Endocrine: Negative. Genitourinary: Negative. Musculoskeletal: Positive for neck pain. Negative for stiffness. Wally Shoulders Skin: Negative. Allergic/Immunologic: Negative. Neurological: Positive for weakness (Wally Shoulders) and headaches. Negative for tingling and numbness. Hematological: Negative. Psychiatric/Behavioral: Negative. Vital Signs: BP 139/87 (BP Site: Left Arm) Pulse 66 Ht 185.4 cm (6' 1 ) Wt 105.2 kg (232 lb) SpO2 99% BMI 30.61 kg/m Physical Exam: GENERAL - Healthy patient [...] obvious deficits in memory, reasoning, or intellect. Cervical: SKIN - No rashes or bruising in the area of the patient s pain. LYMPH NODES - demonstrate no obvious enlargement. EXTREMITIES - Upper extremities are warm, with minimal edema and palpable pulses. No Significant tenderness to palpation noted in the cervical spine and paraspinal musculature. Minimal pain is elicited with flexion, extension, and lateral rotation of the cervical spine. Range of motion is not diminished with these motions. Facet palpation is noted to be minimally painful, but not concordant with the patient s normal pain complaints. STRENGTH - noted to be 5 out of 5 all muscle groups bilateral upper extremities including muscles involving shoulder flexion and abduction, elbow flexion and extension, as well as wrist flexion and extension and intrinsic muscles of the hand. No notable atrophy, fasciculations or spasm. SENSORY - No notable sensory deficits in the bilateral upper extremities to touch or pinprick in all dermatomal distributions. Spurlings sign is negative. Tenderness to palpation noted over the Right Shoulder Joint. Pain is noted with palpation [...] negative. Neers Sign is negative. Assessment/Treatment Plan: Kerri was seen today for neck pain and shoulder pain. Diagnoses and all orders for this visit: Biceps tendinitis of right upper extremity - Controlled Substance Monitoring, U; Future Impingement syndrome of right shoulder - Controlled Substance Monitoring, U; Future Continue Tramadol 50 mg TID PRN Urine Drug [...] discontinuation of the medications from our clinic. Monitor Follow up 3 months The medications I [...] appropriate for medications prescribed. Tramadol pill count not completed at today's office visit. Dose: Quantity Dispensed Quantity Remaining Fill date on prescription bottle Patient educated to bring medication to every office visit. At this time it does appear that the patient s pain is under adequate control with conservative care. It is felt that we should continue this approach and continue to monitor these symptoms and address them again in the future if they become more problematic. This approach was discussed with the patient and they are in agreement. MRI was reviewed and used to explain the condition. Chronic conditions not treated during this visit that affected my overall medical decision making: Depression OARRS: Reviewed. Scribe Statement: Scribed for and in the presence of BHASKAR STEPHENS PA-C by Lindsey Mauro CNA. Provider Statement: IBHASKAR PA-C, personally performed the services described in the documentation, as scribed by Lindsey Mauro CNA in my presence, and it is both accurate and complete. Lindsey Mauro CNA 08/08/24 1131 Bhaskar Stephens PA-C 08/08/24 1152 [facility] Miscellaneous Notes Last Office Visit: 05/09/2024 Next Office Visit: 08/08/2024 Last Urine Drug Screen: Lab Results Component Value Date BENZOSCRN Negative 12/14/2023 OARRS appropriate Phone call to patient to clarify medication. He states he has not taken Mobic for some time. Can update profile with appt 08/08/2024 documented in this encounter [facility] 08-06-2024 Telephone encounter Note Last Office Visit: 05/09/2024 Next Office Visit: 08/08/2024 Last Urine Drug Screen: Lab Results Component Value Date BENZOSCRN Negative 12/14/2023 OARRS appropriate [facility] 08-06-2024 Telephone encounter Note Phone call to patient to clarify medication. He states he has not taken Mobic for some time. Can update profile with appt 08/08/2024 [facility] 07-24-2024 Miscellaneous Notes Last Office Visit: 05/09/2024 Next Office Visit: 08/08/2024 Last Urine Drug Screen: Lab Results Component Value Date BENZOSCRN Negative 12/14/2023 OARRS appropriate documented in this encounter [facility] 07-24-2024 Telephone encounter Note Last Office Visit: 05/09/2024 Next Office Visit: 08/08/2024 Last Urine Drug Screen: Lab Results Component Value Date BENZOSCRN Negative 12/14/2023 OARRS appropriate [facility] 12-14-2023 Miscellaneous Notes Per Bhaskar Stephens patient called and reminded to call PCP for evaluation and treatment for thyroid nodule noted in Cervical spine MRI. Patient informed Bhaskar would like him to make an appointment to discuss treatment for his neck pain after reviewing C=Spine MRI done at [facility]. He would like to see his PCP for the thyroid issue and then will call us to schedule. Lindsey Mauro CNA 12/14/23 1420 noted Pt calls to let us know that he has an appointment scheduled for 12/27/[address] Dasilva (ENT) to address thyroid. noted documented in this encounter [facility] 12-14-2023 Telephone encounter Note Per Bhaskar Stephens patient called and reminded to call PCP for evaluation and treatment for thyroid nodule noted in Cervical spine MRI. Patient informed Bhaskar would like him to make an appointment to discuss treatment for his neck pain after reviewing C=Spine MRI done at [facility]. He would like to see his PCP for the thyroid issue and then will call us to schedule. Lindsey Mauro CNA 12/14/23 1420 [facility] 12-14-2023 Telephone encounter Note noted [facility] 12-14-2023 Telephone encounter Note Pt calls to let us know that he has an appointment scheduled for 12/27/[address] Dasilva (ENT) to address thyroid. [facility] 12-14-2023 Telephone encounter Note noted [facility] 12-14-2023 History of Presen t illness Narrative [facility] [address] [place] [address] Patient: Kerri Trujillo Sex: male : 1965 Age: 58 y.o. PCP: ANDRES BRAGG, DO 12/14/2023 Kerri Trujillo is here for a 3 month follow up for his [facility] [employer] work injury. No chief complaint on [...] 11/03/2018 Performed by Phani López MD at [facility] ROTATOR CUFF REPAIR Right 2004,'07,'09,'12 3 tears repaired and anchor insert ROTATOR [...] PA-C 12/14/23 1420 documented in this encounter [facility] 11-14-2023 Evaluation note Encounter Date Diagnosis Assessment Notes Nov, COVID- 19 (ICD-1 0 - U07.1) [facility] 02-05-2024 Evaluation note* Encounter Date Diagnosis [...] in public places for complete 10 days [facility] 01-31-2024 Evaluation note* Encounter Date Diagnosis Assessment Notes Treatment Notes Treatment Clinical Notes Oct, Type 2 diabetes mellitus with hyperglycemia, without long-term current use of insulin (ICD-10 - E11.65) [facility] Other 01-29-2024 Evaluation note* Encounter Date Diagnosis Assessment Notes Treatment Notes Treatment Clinical Notes Oct, Type 2 diabetes mellitus with hyperglycemia, without long-term current use of insulin (ICD-10 - E11.65) [facility] 01-24-2024 Evaluation note* Encounter Date Diagnosis Assessment Notes Treatment Notes Treatment Clinical Notes Oct, Type 2 diabetes mellitus with hyperglycemia, without long-term current use of insulin (ICD-10 - E11.65) [facility] 01-23-2024 Miscellaneous Notes* Telephone Encounter - Krystal Pierre RN - 11/01/2023 11:15 AM EST Last Office Visit: 08/17/2023 Next Office Visit: 11/16/2023 Last Urine Drug Screen: Lab Results Component Value Date BENZOSCRN Negative 05/17/2023 OARRS appropriate [facility] [employer] [id number] Telephone encounter Note* Telephone Encounter - Krystal Pierre RN - 11/01/2023 11:15 AM EST Last Office Visit: 08/17/2023 Next Office Visit: 11/16/2023 Last Urine Drug Screen: Lab Results Component Value Date BENZOSCRN Negative 05/17/2023 OARRS appropriate [facility] [id number] Evaluation note* Encounter Date Diagnosis Assessment Notes Treatment Notes Treatment Clinical Notes Oct, Controlled type 2 diabetes mellitus with hyperglycemia, without long-term current use of insulin (ICD-10 - E11.65) [facility] 01-08-2024 Evaluation note* Encounter Date Diagnosis Assessment Notes Treatment Notes Treatment Clinical Notes Oct, Type 2 diabetes mellitus with hyperglycemia, without long-term current use of insulin (ICD-10 - E11.65) [facility] Other 01-07-2024 Evaluation note* Encounter Date Diagnosis Assessment Notes Treatment Notes Treatment Clinical Notes Oct, Thyroid nodule (ICD-10 - E04.1) Thyroid US: - 4.5 x 3.6 x 2.7cm 2015 - 3.8 x 3.6 x 2.7cm 3.8cm 2021 - 4.4 x 3.4 x 2.7 2022 [facility] Other 01-05-2024 Evaluation note* Encounter Date Diagnosis Assessment Notes Treatment Notes Treatment Clinical Notes Oct, Type 2 diabetes mellitus with hyperglycemia, without long-term current use of insulin (ICD-10 - E11.65) [facility] Other 01-03-2024 Evaluation note* Encounter Date Diagnosis Assessment Notes Treatment Notes Treatment Clinical Notes Oct, Thyroid nodule (ICD-10 - E04.1) Thyroid US: - 4.5 x 3.6 x 2.7cm 2015 - 3.8 x 3.6 x 2.7cm 3.8cm 2021 - 4.4 x 3.4 x 2.7 2022 Referral to ENT for opinion. Repeat thyroid US in 3-6mo vs repeat FNA [facility] Other 01-02-2024 Evaluation note* Encounter Date Diagnosis Assessment Notes Treatment Notes Treatment Clinical Notes Oct, Thyroid nodule (ICD-10 - E04.1) Thyroid US: - 4.5 x 3.6 x 2.7cm 2015 - 3.8 x 3.6 x 2.7cm 3.8cm 2021 - 4.4 x 3.4 x 2.7 2022 [facility] Other 01-01-2024 Evaluation note* Encounter Date Diagnosis Assessment Notes Treatment Notes Treatment Clinical Notes Oct, Thyroid nodule (ICD-10 - E04.1) Thyroid US: - 4.5 x 3.6 x 2.7cm 2015 - 3.8 x 3.6 x 2.7cm 3.8cm 2021 - 4.4 x 3.4 x 2.7 2022 [facility] Other 12-18-2023 Evaluation note* Encounter Date Diagnosis [...] use, the patient reduces the risk for ND, CVA, HTN, cardiac dysrhythmias and sudden cardiac [...] S/P cervical spinal fusion (ICD-10 - Z98.1) [facility] Other 08-17-2023 Evaluation note* Encounter Date Diagnosis Assessment Notes Treatment Notes Treatment Clinical Notes May, Lateral epicondylitis, right elbow (ICD-10 - M77.11) [facility] Other 06-30-2023 Evaluation note* Encounter Date Diagnosis Assessment Notes Treatment Notes Treatment Clinical Notes Mar, Pure hypercholestero lemia (ICD-10 - E78.00) [facility] Other 04-28-2023 NotePROCEDURE: XR FOOT LT MIN 3 VIEWS HISTORY: Pain ; left heel pain for 6 weeks COMPARISON: None. FINDINGS: BONES:No fracture, acute abnormality, or significant arthropathy. SOFT TISSUES:No visible soft tissue swelling. EFFUSION:None visible. OTHER: Negative. IMPRESSION: 1. Normal examination. Electronically authenticated by: JOHN RED Date: 2023-02-04 07:[address] [place], [place] [address]4-03-2023 Evaluation note* Encounter Date Diagnosis Assessment Notes [...] use, the patient reduces the risk for ND, CVA, HTN, cardiac dysrhythmias and sudden cardiac [...] (prost ate specific antigen) (ICD-10 - Z12.5) [facility] 03-08-2023 Evaluation note* Encounter Date Diagnosis Assessment Notes Treatment Notes Treatment Clinical Notes Dec, Controlled type 2 diabetes mellitus with hyperglycemia, without long-term current use of insulin (ICD-10 - E11.65) [facility] Other 02-23-2023 Evaluation note* Encounter Date Diagnosis [...] [ ] Infections may elevate BS temporarily [facility] Other 02-23-2023 Evaluation note* Encounter Date Diagnosis Assessment Notes Treatment Notes Treatment Clinical Notes Nov, Acute bronchitis due to other specified organisms (ICD-10 - J20.8) [facility] Other 07-15-2021 NoteChief Complaint referral for suprapubic [...] Stopped age 49 Years., (more content not included)...[facility] CenterComment [facility] above:Result Comment: Electronically Signed By: KIYA DIAZ, Reji Montoya\Date and Time Signed: 04/23/21 10:32 [id number] NoteGastroenterology Upper Endoscopy, Adult Upper endoscopy is [...] including vitamins, herbs, eye drops, creams, and llem-bik-zksrsxu medicines. ? Any problems you or family [...] tells you to take them. ? Taking yhqp-cix-fewgwrc medicines, vitamins, herbs, and supplements. General instructions [...] Document Released: 09/23/2001 Silvia (more content not included)...[facility] CenterEvaluation noteNo [employer] Other Evaluation note* Diagnosis Right bicipital tenosynovitis Impingement syndrome of right shoulder region [facility] Chronic, continuous use of opioids- Primary Right bicipital tenosynovitis Impingement syndrome of right shoulder region [facility] Diagnosis Onset Date Resolution Status Hypercholesterolemia acute Hypertension acute Obesity acute KTAHIE (obstructive sleep apnea) acute Thyroid nodule acute Type 2 diabetes mellitus with hyperglycemia [facility] Work Phone: Evaluation note* Diagnosis Right bicipital tenosynovitis Impingement syndrome of right shoulder region [facility] Diagnosis Biceps tendinitis of right upper extremity- Primary Impingement syndrome of right shoulder documented [facility] - [facility]* Type Description [...] Colonoscopy 11/2015 Hospitalization History see surgical history [facility] Other History general Narrative - Reported* Type [...] Colonoscopy 11/2015 Hospitalization History see surgical history [facility] Other InstructionsNot on filedocumented in this encounter [facility] SystemInstructionsNot on filedocumented in this encounter [facility] [employer] SystemInstructionsNot on filedocumented in this encounter [facility] [employer] SystemInstructionsNot on filedocumented in this encounter [facility] [employer] SystemInstructionsNot on filedocumented in this encounter [facility] [employer] SystemReason for referral (narrative)* Reason Referral for right s ided thyroid mass Diagnosis 1 Thyroid nodule (E04. 1) Referral Organization [facility] Mauro khalil Referring Provider First Name Andres Referring Provider Last Name Yemi Referring Provider Specialty Internal Me dicine Referred Organization [facility] Referred Provider Carolann Dasilva Referred Address ,[place], [place],[address] Referred Provider Specialty Ear, Nose an d Throat Referral Priority Routine General Notes Mr. Trujillo is being referred for evaluation of a right sided thyroid mass. This has been present since 2016 without significant change. It has been recommended, that a repeat FNA be scheduled. I am referring Mr. Trujillo for an opinion on FNA vs further observation. Clinical Notes Include all three th yroid US reports [facility] Other Summary Purpose Family History Relationship Condition Age at Onset Recorded Date/T chitra father Chronic obstructive pulmonary disease Unk nown Heart disease Unknown Advance Directives Advance Directive Response Recorded Date/ Time Advance Directives No February 21 8:36am Reason for Referral Reason *FU 10/18 Patient being referred for neck discomfort Diagnosis 1 Strain of neck muscl e, initial encounter (S16.1XXA) Diagnosis 2 Cervical spondylosis (M47.812) Referral Organization [facility] [employer] Referring Provider First Name Andres Referring Provider Last Name Yemi Referring Provider Specialty Internal [facility] Referred Organization [facility] Referred Provider Cade Stephenson Referred Address [address] [place], [place],[address] Referred Provider Specialty Pain Medicin e Referral Priority Routine General Notes Mr. Trujillo has hx o f ACDF w/ recent increase in neck pain. His MRI does not correlate with his symptoms and is being referred for treatment La Nena Carrion 10/11/2023 07:19:30 AM >received today, attachments made, notes locked, referral faxed Clinical Notes Include MRI neck f: [id number] Reason Patient being referr ed for neck discomfort Diagnosis 1 Strain of neck muscl e, initial encounter (S16.1XXA) Diagnosis 2 Cervical spondylosis (M47.812) Referral Organization [facility] [employer] simran Referring Provider First Name Andres Referring Provider Last Name Yemi Referring Provider Specialty Internal [facility] Referred Organization [facility] Referred Address [address] [place], [place],[address] Referred Provider Specialty Pain Medicin e Referral Priority Routine General Notes Mr. Trujillo has hx o f ACDF w/ recent increase in neck pain. His MRI does not correlate with his symptoms and is being referred for treatment Clinical Notes Include MRI neck Chief Complaint and Reason for Visit Chief Complaint 4 month follow up Reason for Visit Hypercholesterolemia Hypertension Obesity KATHIE (obstructive sleep apnea) Thyroid nodule Type 2 diabetes mellitus with hyperglycemia Additional Source Comments (unrecognized sect ion and content) No Status Records FoundNo Status Records FoundNo Status Records FoundNo Status Records Found INFORMATION SOURCE (unrecogn ized section and content) DATE CREATED AUTHOR 10/22/2021 [facility] DATE CREATED AUTHOR AUTHOR'S ORGANIZ ATION 03/18/2023 [facility] DATE CREATED AUTHOR AUTHOR'S ORGANIZ ATION 12/28/2023 [facility] EPIC DATE CREATED AUTHOR AUTHOR'S ORGANIZ ATION 08/09/2024 [facility] REASON FOR VISIT (unrecogniz ed section and content) Reason Onset Date Comments Med Refill 11/01/2023 Reason Onset Date Comments Med Refill 07/24/2024 Reason Onset Date Comments Med Refill 08/06/2024 Reason Comments Neck Pain Shoulder Pain Care Teams (unrecognized sec tion and content) [facility] Relationship Specialty Start Date End Date Andres Bragg DO [address] [place] [address] PCP - General 04/13/17 [facility] Relationship Specialty Start Date End Date Andres Bragg DO [address] [place] [address] PCP - General 04/13/17 [facility] Relationship Specialty Start Date End Date Andres Bragg DO [address] [place] [address] PCP - General 04/13/17 Team Status: Active Member Role Status Dates Andres Bragg DO Primary Care Provider Active Team Status: Inactive Member Role Status Dates Andres Bragg DO Primary Care Provide r, Attending Provider Active Start: June 26, 2024 End: June 26, 2024 [facility] Relationship Specialty Start Date End Date Andres Bragg DO [address] [place] [address] PCP - General 04/13/17 [facility] Relationship Specialty Start Date End Date Andres Bragg DO [address] [place] [address] PCP - General 04/13/17 Goals (unrecognized section and content) Goals may be documented in a n alternate section FOR RECORDS PERTAINING TO PATIENTS WHO ARE [...] BE BASED ON THE PRIMARY CLINICAL RECORDS. [facility] smsPREP [facility]. provides no warranty or guarantee of the accuracy or completeness of information in this document.
[2024-10-08 09:57] LABS: Basophils Absolute Auto 0.1 10^3/uL (0.0-0.1); Basophils Percent Auto 0.9 % (0.2-2.0); Eosinophils Absolute Auto 0.2 10^3/uL (0.0-0.7); Eosinophils Percent Auto 2.4 % (0.9-7.0); Hemoglobin 15.5 g/dL (14.0-18.0); Immature Granulocytes Abs Auto 0.03 10^3/uL (0.00-0.03); Immature Granulocytes Pct Auto 0.4 % (0.0-0.5); Lymphocytes Absolute Auto 2.1 10^3/uL (1.2-3.8); Mean Corpuscular Hemoglobin 29.8 pg (25.9-34.0); Mean Corpuscular Volume 82.5 fL (80.0-94.0); Mean Platelet Volume 7.9 fL (9.5-13.5); Monocytes Absolute Auto 0.4 10^3/uL (0.3-0.8); Monocytes Percent Auto 6.4 % (1.7-12.0); Neutrophils Percent Auto 58.9 % (43.0-75.0); Platelet Count 211 10^3/uL (150-450); Red Blood Count 5.21 10^6/uL (4.70-6.10); Red Cell Distribution Width 11.8 % (11.0-15.0); White Blood Count 6.8 10^3/uL (4.0-11.0)
[2024-10-08 10:13] LABS: Estimated Average Glucose 174 mg/dL; Glycohemoglobin A1C 7.7 % (4.5-6.2)
[2024-10-08 10:28] LABS: Microalbumin Urine Random 1.7 mg/dL (<=30.0)
[2024-10-08 10:29] LABS: Alanine Aminotransferase 67 U/L (16-63); Albumin Globulin Ratio 1.3; Alkaline Phosphatase 86 U/L (46-116); Anion Gap 14.9; Aspartate Amino Transferase 24 U/L (15-37); BUN Creatinine Ratio 18.6; Bilirubin Total 0.6 mg/dL (0.2-1.0); Carbon Dioxide 26.9 mmol/L (21.0-32.0); Chloride 104 mmol/L (98-107); Chol HDL Ratio 2.7; Cholesterol 170 mg/dL (<=200); Estimated GFR (African America >60 (>=60 mL/min/1.73m^2); Estimated GFR (Non-African Ame >60 (>=60 mL/min/1.73m^2); Globulin 3.2 g/dL; Glucose 191 mg/dL (74-106); HDL Cholesterol 63 mg/dL (40-60); Potassium 4.8 mmol/L (3.5-5.1); Sodium 141 mmol/L (136-145); Total Protein 7.2 g/dL (6.4-8.2); Triglycerides 99 mg/dL (<=150); VLDL CHOLESTEROL 19.8 mg/dL
[2024-10-08 10:47] LABS: Prostate Specific Antigen Scrn 0.68 ng/mL (<=4.00)
[2024-10-09 04:06] LABS: Testosterone 482 ng/dL (264-916)
== END 2024-10-08 09:36 | disposition home or self-care (01) ==
LOC: LAB 09:35
PROVIDERS: PCP Internal Medicine; Visit Provider Internal Medicine
DX: E78.00 Pure hypercholesterolemia, unspecified (principal); E11.65 Type 2 diabetes mellitus with hyperglycemia; I10 Essential (primary) hypertension; Z12.5 Encounter for screening for malignant neoplasm of prostate; R53.83 Other fatigue
CPT/HCPCS: 36415; 80053; 80061; 82043; 83036; 84403; 85025; G0103

== ENCOUNTER 2025-02-27 09:43 | Outpatient (OUT) | payer BC, SELFPAY ==
--- OUTSIDE RECORDS SUMMARY | 2025-02-27 09:47 | XMS_ITS | Clinical Summary ---
Author Organization [facility] Address [address] [place] [address] Care Team Providers Care Clip Baker Name Role Phone PapitoAshok Primary Care Provider [phone] Allergies Active Allergy Reactions Criticality Noted Date Comments Codeine Swelling 04/04/2009 Active Problems Problem Noted Date Diagnosed Date Superior glenoid labrum lesion 12/25/2009 Social History Tobacco Use Types Packs/Day Years Used Date Smoking Tobacco: Never Assessed Sex and Gender Information Value Date Recorded Sex Assigned at Not on file Legal Sex Male 11:11 AM EST Gender Identity Not on file Sexual Orientation Not on file Last Filed Vital Signs Vital Sign Reading Time Taken Comments Blood Pressure 119/83 05/19/2009 9:34 AM EDT Pulse 70 05/19/2009 9:34 AM EDT Temperature 36.6 C (97.9 F) 05/19/2009 9:34 AM EDT Respiratory Rate 18 05/19/2009 9:34 AM EDT Oxygen Saturation 100% 05/19/2009 9:34 AM EDT Inhaled Oxygen Concentration - - Weight 90.3 kg (199 lb) 05/19/2009 9:34 AM EDT Height 188 cm (6' 2 ) 05/19/2009 9:34 AM EDT Body Mass Index 25.55 05/19/2009 9:34 AM EDT Plan of Treatment Health Maintenance Due Date Last Done Comments Anxiety Screening 1982 Depression Screening 1982 HIV Screening 1982 Hepatitis C Screening 1982 DTaP,Tdap,Td Vaccine (1 - Tdap) [address] Colonography 2009 Cologuard (FIT-DNA) 2009 Colonoscopy 2009 Colorectal Cancer Screening 2009 Fecal Occult Blood 2009 Prostate Cancer Screening Discussion 2009 Sigmoidoscopy 2009 Diabetes Screening 04/03/2012 04/03/2009 Pneumococcal Vaccine: 50+ (1 of 1 - PCV) 2014 Shingrix Vaccine (1 of 2) 2014 Covid-19 Vaccine (1 - 2023-25 season) 2024 Influenza Vaccine (Season Ended) 2025 RSV Vaccine (1 - 1-dose 75+ series) 2039 Procedures Procedure Name Priority Date/Time Associated Diagnosis Comments BASIC METABOLIC PANEL Routine 04/03/2009 3:02 PM EDT from Last 3 Months or Most Recently Relevant to Health Maintenance Results * (ABNORMAL) BASIC METABOLIC PNL (04/03/2009 3:02 PM EDT) BUN 28(H) 7 - 18 mg/dL [facility] Sodium 139 136 - 147 mmol/L [facility] Potassium 4.6 3.5 - 5.1 mmol/L [facility] Chloride 104 100 - 111 mmol/L [facility] CO2 26 23 - 33 mmol/L [facility] Glucose 102(H) 65 - 100 mg/dL [facility] Creatinine 1.12 0.6 - 1.3 mg/dL [facility] Anion Gap 14 10 - 20 mmol/L [facility] Calcium 8.9 8.8 - 10.5 mg/dL [facility] Blood specimen (specimen) BLOOD SPECIMEN / Unknown 04/03/2009 3:02 PM EDT 04/03/2009 4:21 PM EDT us Amy Larkin MD LABORATORY Final Result [facility] [address] [address] from Last 3 Months or Most Recently Relevant to Health Maintenance Insurance [facility] , [address] [id number] Care Teams Clip Baker Relationship Specialty Start Date End Date Ashok Cobos DO PCP - General 10/31/09
--- OUTSIDE RECORDS SUMMARY | 2025-02-27 09:48 | XMS_ITS | CCD ---
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 4.8 x 1.4 x 1.4 cm [employer] Other US THYROID ISTHMUS: Normal size and echotexture. [employer] Other US THYROID Thickness: 2 mm [facility] [facility] [employer] Other US THYROID U S/US thyroid [place] [employer] Other US THYROID IMPRESSION: [employer] [place] Other US THYROID 1. Slight increase i n size versus technical variation of the 4.4 cm TR 3 [employer] Other US THYROID partially cystic and partially solid lesion within the right lobe. By size [employer] Other US THYROID criteria ultrasound- guided fine-needle aspiration should be considered. [employer] Other US THYROID TR3 (mildly suspicio us): > 1.5 cm, follow-up ultrasound in 1, 3, and 5 years. [employer] Other US THYROID > [employer] Other US THYROID 2.5 cm, fine needle aspiration. [employer] Other US THYROID Electronically authe nticated by: SIMON RED Date: 10/10/2023 10:59 [employer] Other US THYROID Dictated By: Simon Red M.D. 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[employer] [place] Other MR cervical spine wo/w conon 10-06-2023 MR cervical spine wo/w con [employer] [facility] Other CT CSPINE WO CONon 3 CT [...] ANGELO MTZ Date: 2023-03-07 20:03 Normal [facility] CT HEAD WO CONon 03-07-2023 [...] DENICE REBOLLEDO Date: 2023-03-07 20:07 Normal [facility] XR CHEST 2 Von 03-07-2023 [...] ANGELO MTZ Date: 2023-03-07 20:07 Normal [facility] Urinalysis - DIPSTICKon 04-0 Appearance (U) clear [employer] Other Bilirubin Ql (U) Negative [employer] Other Color (U) light yellow [employer] Other Glucose Ql (U) ++++ [employer] Other Hemoglobin Ql (U) Negative [employer] Other Ketones Ql (U) Negative [employer] Other Leukocyte esterase Test strip Ql (U) Negative [employer] Other Nitrite Ql (U) Negative [employer] Other pH (U) 7.5 [pH] [employer] Other Protein Ql (U) + [employer] Other Specific gravity (U) [Rel density] 1.005 [employer] [place] Other Urobilinogen (U) [Mass/Vol] 0.5 mg/dL [employer] Other Urinalysis - DIPSTICK [employer] [facility] Other CT ABD/PELV W CONon 10-14-19 CT [...] or bowel involvement. Electronically authenticated by: SIMON RED Date: 2022-10-14 08:21 Normal [facility] US SINGLE QUAD RT UPPERon [...] by: ANGELO WALDROP Date: 2022-09-24 10:59 Normal [facility] CBC AUTO DIFFon 09-17-2022 BASO # 0.1 103/ul Normal 0.0-0.1 [facility] Comment on above: Performed By: #### C BC #### [facility] [address] [address] [address] Castillo Diamond Basophils/100 WBC (Bld) 0.8 % Normal 0.2-2.0 [facility] Comment on above: Performed By: #### C BC #### [facility] [address] [address] [address] Castillo Diamond EO # 0.2 103/ul Normal 0.0-0.7 [facility] Comment on above: Performed By: #### C BC #### [facility] [address] [place] [address] Dr. Castillo Diamond Eosinophils/100 WBC (Bld) 3.0 % Normal 0.9-7.0 [facility] Comment on above: Performed By: #### C BC #### [facility] [address] [place] [address] Dr. Castillo Diamond Erythrocyte distribution width (RBC) [Ratio] 11.9 % Normal 11.0-15.0 [facility] Comment on above: Performed By: #### C BC #### [facility] [address] [place] [address] Dr. Castillo Diamond Hematocrit (Bld) [Volume fraction] 43.8 % Normal 42.0-54.0 [facility] Comment on above: Performed By: #### C BC #### [facility] [address] [place] [address] Dr. Castillo Diamond Hemoglobin (Bld) [Mass/Vol] 15.4 g/dL Normal 14.0-18.0 [facility] Comment on above: Performed By: #### C BC #### [facility] [address] [place] [address] Dr. Castillo Diamond IG # 0.04 10e3/ul Critically high 0.00-0.03 [facility] Comment on above: Performed By: #### C BC #### [facility] [address] [place] [address] Dr. Castillo Diamond IG % 0.6 % Critically high 0.0-0.5 [facility] Comment on above: Performed By: #### C BC #### [facility] [address] [place] [address] Dr. Castillo Diamond LYMPH # 1.5 103/ul Normal 1.2-3.8 [facility] Comment on above: Performed By: #### C BC #### [facility] [address] [place] [address] Dr. Castillo Diamond Lymphocytes/100 WBC (Bld) 23.2 % Normal 20.5-60.0 [facility] Comment on above: Performed By: #### C BC #### [facility] [address] [place] [address] Dr. Castillo Diamond MANUAL DIFF REQ NO Normal [facility] Comment on above: Performed By: #### C BC #### [facility] [address] [place] [address] Dr. Castillo Diamond MCH (RBC) [Entitic mass] 29.0 pg Normal 25.9-34.0 [facility] Comment on above: Performed By: #### C BC #### [facility] [address] [place] [address] Dr. Castillo Diamond MCHC (RBC) [Mass/Vol] 35.2 g/dL Normal 29.9-35.2 [facility] Comment on above: Performed By: #### C BC #### [facility] [address] [place] [address] Dr. Castillo Diamond MCV (RBC) [Entitic vol] 82.5 fL Normal 80.0-94.0 [facility] Comment on above: Performed By: #### C BC #### [facility] [address] [place] [address] Dr. Castillo Diamond MONO # 0.5 103/ul Normal 0.3-0.8 [facility] Comment on above: Performed By: #### C BC #### [facility] [address] [place] [address] Dr. Castillo Diamond Monocytes/100 WBC (Bld) 7.6 % Normal 1.7-12.0 [facility] Comment on above: Performed By: #### C BC #### [facility] [address] [place] [address] Dr. Castillo Diamond NEUT # 4.3 103/ul Normal 1.4-6.5 [facility] Comment on above: Performed By: #### C BC #### [facility] [address] [place] [address] Dr. Castillo Diamond Neutrophils/100 WBC (Bld) 64.8 % Normal 43.0-75.0 [facility] Comment on above: Performed By: #### C BC #### [facility] [address] [place] [address] Dr. Castillo Diamond Platelet mean volume (Bld) [Entitic vol] 7.8 fL Critically low 9.5-13.5 [facility] Comment on above: Performed By: #### C BC #### [facility] [address] [place] [address] Dr. Castillo Diamond PLT 212 103/ul Normal 150-450 [facility] Comment on above: Performed By: #### C BC #### [facility] [address] [place] [address] Dr. Castillo Diamond RBC 5.31 106/ul Normal 4.70-6.10 [facility] Comment on above: Performed By: #### C BC #### [facility] [address] [place] [address] Dr. Castillo Diamond WBC 6.6 103/ul Normal 4.0-11.0 [facility] Comment on above: Performed By: #### C BC #### [facility] [address] [place] [address] Dr. Castillo Diamond LIPASEon 09-17-2022 Lipase [Catalytic activity/Vol] 540.0 U/L Critically high 73.0-393.0 [facility] Comment on above: Performed By: #### L IPA, LIVER #### [facility] [address] [place] [address] Dr. Castillo Diamond LIVER PROFILEon 09-17-2022 Albumin [Mass/Vol] 3.9 g/dL Normal 3.4-5.0 [facility] Comment on above: Performed By: #### L IPA, LIVER #### [facility] [address] [place] [address] Dr. Castillo Diamond Albumin/Globulin [Mass ratio] 1.0 {ratio} Normal [facility] Comment on above: Performed By: #### L IPA, LIVER #### [facility] [address] [place] [address] Dr. Castillo Diamond ALP [Catalytic activity/Vol] 91 U/L Normal 46-116 [facility] Comment on above: Performed By: #### L IPA, LIVER #### [facility] [address] [place] [address] Dr. Castillo Diamond ALT [Catalytic activity/Vol] 46 U/L Normal 16-63 [facility] Comment on above: Performed By: #### L IPA, LIVER #### [facility] [address] [place] [address] Dr. Castillo Diamond AST [Catalytic activity/Vol] 26 U/L Normal 15-37 [facility] Comment on above: Performed By: #### L IPA, LIVER #### [facility] [address] [place] [address] Dr. Castillo Diamond BILI, CONJUGATED 0.1 mg/dL Normal 0.0-0.2 [facility] Comment on above: Performed By: #### L IPA, LIVER #### [facility] [address] [place] [address] Dr. Castillo Diamond Bilirubin [Mass/Vol] 0.5 mg/dL Normal 0.2-1.0 [facility] Comment on above: Performed By: #### L IPA, LIVER #### [facility] [address] [place] [address] Dr. Castillo Diamond Globulin (S) [Mass/Vol] 3.8 g/dL Normal [facility] Comment on above: Performed By: #### L IPA, LIVER #### [facility] [address] [place] [address] Dr. Castillo Diamond Protein [Mass/Vol] 7.7 g/dL Normal 6.4-8.2 [facility] Comment on above: Performed By: #### L IPA, LIVER #### [facility] [address] [address] [address] Castillo Diamond XR HAND RT MIN [...] by: ANGELO MTZ Date: 2022-05-19 15:04 Normal [facility] General Surgery Office/Clini c Noteon 06-13-2021 [...] virus vaccine, live, trivalent 08/13/[address] [facility] Comment on above: Result Comment: Elec tronically Signed By: KIYA DAIZ, Reji Montoya\Date and Time Signed: 06/13/21 09:00 EDT Ambulatory Clinical Summaryo n 06-05-2021 Ambulatory Clinical Summary {[id number]}CD:[address] [facility] Outside Colonoscopyon 2020 Outside Colonoscopy [id number]#1.00CD:[address] [facility] Pathology Noteon 05-26-2021 Pathology Note [id number]#1.00CD:127 [facility] Pathology Noteon 05-22-2021 Pathology Note [id number]#[id number]:127 [facility] Consent for Procedure/Surger yon 04-23-2021 Consent for Procedure/Surgery [id number]#1.00CD:[address] [facility] Immunization Recordson 04-23 Immunization Records [id number]#[id number]:127 [facility] Ambulatory Clinical Summaryo n 04-22-2021 Ambulatory Clinical Summary {[id number]}CD:[address] [facility] Vital Signs Date Time Vital Sign Value Performing Clinician Facility 11-14-2024 09:36-0500 Body height 185.4 cm Bhaskar Crowd Playmary lou AQUINO-C Work Phone: [facility] 11-14-2024 09:36-0500 Body mass index (BMI) [Ratio] 30.48 kg/m2 Bhaskar Ruci.cn PA-C Work Phone: [facility] 11-14-2024 09:36-0500 Body weight 104.78 kg Bhaskar Verhoff PA-C Work Phone: [facility] 11-14-2024 09:36-0500 Diastolic blood pressure 81 mm[Hg] Bhaskar Verhoff PA-C Work Phone: [facility] 11-14-2024 09:36-0500 Heart rate 78 /min Bhaskar Verhoff PA-C Work Phone: [facility] 11-14-2024 09:36-0500 Respiratory rate 18 /min Bhaskar Verhoff PA-C Work Phone: [facility] 11-14-2024 09:36-0500 SaO2% (BldA) [Mass fraction] 98 % Bhaskar Verhoff PA-C Work Phone: [facility] 11-14-2024 09:36-0500 Systolic blood pressure 134 mm[Hg] Bhaskar Verhoff PA-C Work Phone: [facility] 10-29-2024 09:01-0500 Body height 182.88 cm [facility] 10-29-2024 09:01-0500 Body mass index (BMI) [Ratio] 31.6 kg/m2 [facility] 10-29-2024 09:01-0500 Body weight 105.85 kg [facility] 10-29-2024 09:01-0500 Diastolic blood pressure 80 mm[Hg] [facility] 10-29-2024 09:01-0500 Heart rate 91 /min [facility] 10-29-2024 09:01-0500 Respiratory rate 12 /min [facility] 10-29-2024 09:01-0500 Systolic blood pressure 124 mm[Hg] [facility] 08-08-2024 09:29-0400 Body height 185.4 cm Bhaskar Verhoff PA-C Work Phone: [facility] 08-08-2024 09:29-0400 Body mass index (BMI) [Ratio] 30.61 kg/m2 Bhaskar Verhoff PA-C Work Phone: [facility] [employer] [facility] 08-08-2024 09:29-0400 Body weight 105.23 kg Bhaskar Verhoff PA-C Work Phone: [facility] [employer] [facility] 08-08-2024 09:29-0400 Diastolic blood pressure 87 mm[Hg] Bhaskar Verhoff PA-C Work Phone: [facility] 08-08-2024 09:29-0400 Heart rate 66 /min Bhaskar Verhoff PA-C Work Phone: [facility] 08-08-2024 09:29-0400 SaO2% (BldA) [Mass fraction] 99 % Bhaskar Verhoff PA-C Work Phone: [facility] 08-08-2024 09:29-0400 Systolic blood pressure 139 mm[Hg] Bhaskar Verhoff PA-C Work Phone: [facility] 06-26-2024 08:57-0400 Body height 182.88 cm [facility] 06-26-2024 08:57-0400 Body mass index (BMI) [Ratio] 31.6 kg/m2 [facility] 06-26-2024 08:57-0400 Body weight 105.68 kg [facility] 06-26-2024 08:57-0400 Diastolic blood pressure 80 mm[Hg] [facility] 06-26-2024 08:57-0400 Heart rate 73 /min [facility] 06-26-2024 08:57-0400 Respiratory rate 12 /min [facility] 06-26-2024 08:57-0400 Systolic blood pressure 130 mm[Hg] [facility] 05-09-2024 08:56-0400 Body height 185.4 cm Bhaskar Verhoff PA-C Work Phone: [facility] 05-09-2024 08:56-0400 Body mass index (BMI) [Ratio] 30.48 kg/m2 Bhaskar Verhoff PA-C Work Phone: [facility] [employer] [facility] 05-09-2024 08:56-0400 Body weight 104.78 kg Bhaskar Verhoff PA-C Work Phone: [facility] [employer] [facility] 05-09-2024 08:56-0400 Diastolic blood pressure 85 mm[Hg] Bhaskar Verhoff PA-C Work Phone: [facility] 05-09-2024 08:56-0400 Heart rate 67 /min Bhaskar Verhoff PA-C Work Phone: [facility] [employer] [facility] 05-09-2024 08:56-0400 Respiratory rate 18 /min Bhaskar Verhoff PA-C Work Phone: [facility] 05-09-2024 08:56-0400 SaO2% (BldA) [Mass fraction] 98 % Bhaskar Verhoff PA-C Work Phone: [facility] 05-09-2024 08:56-0400 Systolic blood pressure 142 mm[Hg] Bhaskar Verhoff PA-C Work Phone: [facility] [employer] [facility] 12-14-2023 12:55-0500 Body height 185.4 cm Bhaskar Verhoff PA-C Work Phone: [facility] [employer] [facility] 12-14-2023 12:55-0500 Body mass index (BMI) [Ratio] 31.8 kg/m2 Bhaskar Verhoff PA-C Work Phone: [facility] [employer] [facility] 12-14-2023 12:55-0500 Body weight 109.32 kg Bhaskar Verhoff PA-C Work Phone: [facility] [employer] [facility] 12-14-2023 12:55-0500 Diastolic blood pressure 93 mm[Hg] Bhaskar Verhoff PA-C Work Phone: [facility] [employer] [facility] 12-14-2023 12:55-0500 Heart rate 82 /min Bhaskar Verhoff PA-C Work Phone: [facility] 12-14-2023 12:55-0500 Respiratory rate 16 /min Bhaskar Saezhoff PA-C Work Phone: [facility] 12-14-2023 12:55-0500 SaO2% (BldA) [Mass fraction] 99 % Bhaskar Saezhoff PA-C Work Phone: [facility] 12-14-2023 12:55-0500 Systolic blood pressure 135 mm[Hg] Bhaskar Sehoff PA-C Work Phone: [facility] 10-16-2023 18:45-0500 Body height 182.88 cm Andres Ball Other [employer] Other 09-26-2023 15:45-0500 Body height 182.88 cm Andres Ball Other [employer] Other 09-26-2023 15:45-0500 Body mass index (BMI) [Ratio] 32.79 kg/m2 Andres Ball Other [employer] Other 09-26-2023 15:45-0500 Body weight 109.68 kg Andres Ball Other [employer] Other 09-26-2023 15:45-0500 Diastolic blood pressure 82 mm[Hg] Andres Ball Other [employer] Other 09-26-2023 15:45-0500 Systolic blood pressure 122 mm[Hg] Andres Ball Other [employer] Other 01-10-2023 11:00-0400 Body height 182.88 cm Andres Ball Other [employer] Other 01-10-2023 11:00-0400 Body mass index (BMI) [Ratio] 33.2 kg/m2 Andres Ball Other [employer] Other 01-10-2023 11:00-0400 Body weight 111.04 kg Andres [employer] Other [employer] Other 01-10-2023 11:00-0400 Diastolic blood pressure 82 mm[Hg] Andres [employer] Other [employer] Other 01-10-2023 11:00-0400 Respiratory rate 12 /min Andres [employer] Other [facility] Other 01-10-2023 11:00-0400 Systolic blood pressure 122 mm[Hg] [employer] Other [facility] Other Encounters Encounter Date Encounter Type Care Provider Facility Start: 11-29-2024 End: 12-05-2024 Refill Suzi Caban RN [facility] Comment on above: Right bicipital teno synovitis; Impingement syndrome of right shoulder region Start: 11-14-2024 End: 11-14-2024 Office outpatient visit 25 minutes Bhaskar Stephens PA-C Work Phone: [facility] Comment on above: Impingement syndrome of right shoulder (Primary Dx); Right bicipital tenosynovitis; Impingement syndrome of right shoulder region; Biceps tendinitis of right upper extremity Start: 11-14-2024 End: 11-14-2024 ambulatory BHASKAR STEPHENS [facility] Start: 10-29-2024 End: 10-29-2024 ambulatory [facility] Work Phone: Start: 10-29-2024 End: 10-29-2024 Patient encounter procedure [facility] Work Phone: Start: 10-19-2024 End: 10-19-2024 Refill Suzi Caban RN [facility] Comment on above: Right bicipital teno synovitis; Impingement syndrome of right shoulder region Start: 10-11-2024 End: 10-11-2024 Refill Suzi Caban RN [facility] Comment on above: Right bicipital teno synovitis; Impingement syndrome of right shoulder region Start: 10-08-2024 Non-patient / Non-visit [facility] Work Phone: Start: 08-22-2024 End: 08-30-2024 Telephone encounter Suzi Caban RN [facility] Start: 08-08-2024 End: 08-08-2024 Office outpatient visit 25 minutes Bhaskar AQUINO-C Work Phone: [facility] Comment on above: Biceps tendinitis of right upper extremity (Primary Dx); Impingement syndrome of right shoulder Start: 08-08-2024 End: 08-08-[address] [facility] Start: 08-06-2024 End: 08-07-2024 Refill Irene Bryson RN [facility] Start: 07-24-2024 End: 07-24-2024 Refill Irene Bryson RN [facility] Comment on above: Right bicipital teno synovitis; Impingement syndrome of right shoulder region Start: 06-26-2024 End: 06-26-2024 ambulatory [facility] Work Phone: Start: 06-26-2024 End: 06-26-2024 Patient encounter procedure [facility] Work Phone: Start: 05-09-2024 End: 05-09-2024 Office outpatient visit 25 minutes Bhaskar Stephens PA-C Work Phone: [facility] Comment on above: Biceps tendinitis of right upper extremity (Primary Dx); Right bicipital tenosynovitis; Impingement syndrome of right shoulder region; Chronic, continuous use of opioids; Impingement syndrome of right shoulder Start: 05-09-2024 End: 05-09-[address] [facility] Start: 01-24-2024 End: 01-24-2024 David Pierre RN [facility] Comment on above: Bicipital tendinitis of right shoulder (Primary Dx) Start: 12-27-2023 End: 12-27-2023 ambulatory MARIVEL DASILVA Not Available Start: 12-14-2023 End: 12-14-2023 ambulatory BHASKAR L[facility] Start: 12-14-2023 Telephone encounter Lindsey Mauro CNA [facility] Start: 12-14-2023 End: 12-14-2023 Office outpatient visit 25 minutes Bhaskar Stephens PA-C Work Phone: [facility] Comment on above: Chronic, continuous use of opioids (Primary Dx); Right bicipital tenosynovitis; Impingement syndrome of right shoulder region Start: 12-14-2023 End: 12-14-2023 ambulatory BHASKAR N [facility] Start: 11-14-2023 End: 11-14-2023 ambulatory Andres Bragg Other [employer] Other Start: 11-14-2023 Office outpatient vi sit 15 minutes Andres DOBBS [facility] Start: 11-14-2023 Telephone encounter [facility] Start: 11-10-2023 End: 11-10-2023 ambulatory Andres Bragg Other [facility] Other Start: 11-10-2023 Telephone encounter Andres Zuluaga Art Install[employer] Start: 11-09-2023 End: 11-09-2023 ambulatory Andres Bragg Other [place] Other Start: 11-09-2023 [facility] encounter [facility] Start: 11-07-2023 End: 11-07-2023 ambulatory Andres Ball Other [facility] Other Start: 11-07-2023 Telephone encounter [facility] Start: 11-03-2023 Telephone encounter Suzi Caban RN [facility] Start: 11-02-2023 End: 11-02-2023 ambulatory Andres Ball Other [facility] [place] Other Start: 11-02-2023 Telephone encounter Andres [facility] Start: 11-01-2023 David Pierre RN [facility] Comment on above: Right bicipital teno synovitis; Impingement syndrome of right shoulder region Start: 10-19-2023 End: 10-19-2023 ambulatory Andres Ball Other [place] Other Start: 10-19-2023 Telephone encounter Andres Ball [facility] Start: 10-17-2023 End: 10-17-2023 ambulatory Andres Ball Other [place] Other Start: 10-17-2023 Telephone encounter Andres Ball [facility] Start: 10-16-2023 End: 10-16-2023 ambulatory Andres Ball Other [place] Other Start: 10-16-2023 Telephone encounter Andres Ball [facility] Start: 10-14-2023 End: 10-14-2023 ambulatory Andres Ball Other [place] Other Start: 10-14-2023 Telephone encounter Andres Ball [facility] Start: 10-12-2023 End: 10-12-2023 ambulatory Andres Ball Other [place] Other Start: 10-12-2023 Telephone encounter Andres Ball [facility] Start: 10-11-2023 End: 10-11-2023 ambulatory Andres Ball Other [place] Other Start: 10-11-2023 Telephone encounter Andres Bragg [facility] Start: 10-10-2023 End: 10-10-2023 ambulatory Andres Bragg Other [place] Other Start: 10-10-2023 Telephone encounter Andres Bragg [facility] Start: 10-07-2023 End: 10-07-2023 ambulatory Andres Bragg Other [place] Other Start: 10-07-2023 Telephone encounter [facility] Start: 09-26-2023 End: 09-26-2023 ambulatory Andres Bragg Other [place] Other Start: 09-26-2023 Office outpatient vi sit 25 minutes Andres Yemi [facility] Start: 06-14-2023 End: 06-14-2023 ambulatory Andres Bragg Other [place] Other Start: 06-14-2023 Telephone encounter Andres Bragg [facility] Start: 05-26-2023 End: 05-26-2023 ambulatory Andres Bragg Other [place] Other Start: 05-26-2023 Telephone encounter Andres Bragg [facility] Start: 04-08-2023 End: 04-08-2023 ambulatory Andres Bragg Other [place] Other Start: 04-08-2023 Telephone encounter Andres Yemi [facility] Start: 03-07-2023 End: 03-07-[address] ANDRES BRAGG Facility:[facility] Start: 02-10-2023 ambulatory TROY Yarbrough y:[facility] Start: 02-03-2023 End: 02-04-[address] ANDRES BRAGG Facility:[facility] Start: 01-10-2023 End: 01-10-2023 ambulatory Andres Bragg Other [place] Other Start: 01-10-2023 Encounter for genera l adult medical examination without abnormal findings Andres Bragg [facility] Start: 01-10-2023 Periodic preventive med est patient 40-64yrs Andres Yemi [facility] Start: 12-15-2022 End: 12-15-2022 ambulatory Andres Bragg Other [place] Other Start: 12-15-2022 Telephone encounter Andres Bragg [facility] Start: 12-02-2022 End: 12-02-2022 ambulatory Andres Bragg Other [place] Other Start: 12-02-2022 Office outpatient vi sit 15 minutes Andres Bragg [facility] Start: 12-02-2022 Telephone encounter Andres Bragg [facility] Start: 10-14-2022 End: 10-15-[address] ANDRES BRAGG Facility:[facility] Start: 09-24-2022 End: 09-25-[address] ANDRES BRAGG Facility:[facility] Start: 09-17-2022 End: 09-18-[address] ANDRES BRAGG Facility:[facility] Start: 05-19-2022 End: 05-19-2022 ambulatory JIM NGOEY . Facility: Plan of Treatment Date Care Activity Detail Author Start: 05-19-2032 DTaP,Tdap and Td Vac cines (2 - Tdap) DTaP,Tdap and Td Vaccines (2 - Tdap) [facility] Start: 11-14-2025 Adult BMI Screening Adult BMI Screen ing [facility] Start: 11-14-2025 Tobacco Screening Tobacco Screening [facility] Start: 08-08-2025 Adult BMI Screening Adult BMI Screen ing [facility] Start: 08-08-2025 Tobacco Screening Tobacco Screening [facility] Start: 05-09-2025 Adult BMI Screening Adult BMI Screen ing [facility] Start: 05-09-2025 Tobacco Screening Tobacco Screening [facility] Start: 02-13-2025 End: 02-13-2025 Patient encounter procedure 02/13/2025 9:30 AM EDT Office Visit [facility] [address] [place] [address] Bhaskar Stephens PA-C [address] [place] [address] [facility] Start: 12-13-2024 Adult BMI Screening Adult BMI Screen ing [facility] Start: 12-13-2024 Tobacco Screening Tobacco Screening [facility] Start: 11-14-2024 End: 11-14-2024 Patient encounter procedure 11/14/2024 9:30 AM EST Office Visit [facility] [address] [place] [address] Bhaskar Stephens PA-C [address] [place] [address] [facility] Start: 08-17-2024 Adult BMI Screening Adult BMI Screen ing [facility] Start: 08-17-2024 Tobacco Screening Tobacco Screening [facility] Start: 08-08-2024 End: 08-08-2024 Patient encounter procedure 08/08/2024 9:30 AM EDT Office Visit [facility] [address] [place] [address] Bhaskar Stephens PA-C [address] [place] [address] [facility] Start: 06-10-2024 COVID-19 Vaccine ( season) COVID-19 Vaccine ( season) [facility] Start: 06-10-2024 COVID-19 Vaccine ( season) COVID-19 Vaccine () [facility] Start: 06-10-2024 Influenza vaccination Influenza Vacc ine [facility] Start: 03-14-2024 End: 03-14-2024 Patient encounter procedure 03/14/2024 9:30 AM EDT Office Visit [facility] [address] [place] [id number] Bhaskar Stephens PA-C [address] [place] [address] [facility] Start: 11-16-2023 End: 11-16-2023 Patient encounter procedure 11/16/2023 8:30 AM EST Office Visit [facility] [address] [place] [id number] Bhaskar Stephens PA-C [address] [place] [address] [facility] Start: 06-10-2023 COVID-19 Vaccine ( season) COVID-19 Vaccine ( season) [facility] Start: 06-10-2023 Influenza vaccination Influenza Vacc ine [facility] Start: 2014 Administration of varicella zoster vaccine Zoster (Shingles) Vaccine (1 of 2) [facility] Start: 1982 Adult BMI Follow Up Plan Adult BMI Follow Up Plan [facility] Start: 1976 [facility] panel - Serum or Plasma [facility] End: 08-08-2025 Controlled Substance Monitoring, U Controlled Substance Monitoring, U Lab Routine Biceps tendinitis of right upper extremity Impingement syndrome of right shoulder 1 Occurrences starting 08/08/2024 until 08/08/2025 [facility] Work Phone: Comment on above: 1 Occurrences starti ng 08/08/2024 until 08/08/2025 Microalbumin [Mass/volume] in Urine [facility] Immunizations Immunization Date Immunization Notes Care Provider Fa cility 06-26-2024 influenza, seasonal, injectable, preservative free [facility] 08-18-2023 influenza virus vaccine, unspecified formulation Krystal Pierre RN [email or web address] [facility] 07-29-2022 influenza virus vaccine, split virus (incl.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 their system that states all prescriptions from [facility] need to be run through [facility] however they have been running scripts through patient's private insurance since May 2023. She states they last submitted Tramadol prescription to [facility] October 14, 2022. Justine states that due to the time lapse with [facility] submissions, a PA will be required. [facility] [id number] Telephone encounter Note* Telephone Encounter - Irene Bryson RN - 11/03/2023 2:45 PM EST Prior auth [employer] 31 faxed to [facility] Received approval [facility] Telephone encounter Note* Telephone Encounter - Irene Bryson RN - 11/03/2023 2:45 PM EST [facility] spoke to justine re: prior auth approved [id number] Evaluation note* Encounter Date Diagnosis Assessment Notes Treatment Notes Treatment Clinical Notes Oct, Type 2 diabetes mellitus with hyperglycemia, without long-term current use of insulin (ICD-10 - E11.65) [facility] 01-23-2024 Miscellaneous Notes* Telephone Encounter - Krystal Pierre RN - 11/01/2023 11:15 AM EST Last Office Visit: 08/17/2023 Next Office Visit: 11/16/2023 Last Urine Drug Screen: Lab Results Component Value Date BENZOSCRN Negative 05/17/2023 OARRS appropriate [facility] Tele[facility] encounter Note* Telephone Encounter - Krystal Pierre RN - 11/01/2023 11:15 AM EST Last Office Visit: 08/17/2023 Next Office Visit: 11/16/2023 Last Urine Drug Screen: Lab Results Component Value Date BENZOSCRN Negative 05/17/2023 OARRS appropriate [facility] [id number] Evaluation note* Encounter Date Diagnosis Assessment Notes Treatment Notes Treatment Clinical Notes Oct, Controlled type 2 diabetes mellitus with hyperglycemia, without long-term current use of insulin (ICD-10 - E11.65) [facility] 01-08-2024 Evaluation note* Encounter Date Diagnosis Assessment Notes Treatment Notes Treatment Clinical Notes Oct, Type 2 diabetes mellitus with hyperglycemia, without long-term current use of insulin (ICD-10 - E11.65) [facility] 01-07-2024 Evaluation note* Encounter Date Diagnosis Assessment Notes Treatment Notes Treatment Clinical Notes Oct, Thyroid nodule (ICD-10 - E04.1) Thyroid US: - 4.5 x 3.6 x 2.7cm 2015 - 3.8 x 3.6 x 2.7cm 3.8cm 2021 - 4.4 x 3.4 x 2.7 2022 [facility] 01-05-2024 Evaluation note* Encounter Date Diagnosis Assessment Notes Treatment Notes Treatment Clinical Notes Oct, Type 2 diabetes mellitus with hyperglycemia, without long-term current use of insulin (ICD-10 - E11.65) [facility] 01-03-2024 Evaluation note* Encounter Date Diagnosis Assessment Notes Treatment Notes Treatment Clinical Notes Oct, Thyroid nodule (ICD-10 - E04.1) Thyroid US: - 4.5 x 3.6 x 2.7cm 2015 - 3.8 x 3.6 x 2.7cm 3.8cm 2021 - 4.4 x 3.4 x 2.7 2022 Referral to ENT for opinion. Repeat thyroid US in 3-6mo vs repeat FNA [facility] 01-02-2024 Evaluation note* Encounter Date Diagnosis Assessment Notes Treatment Notes Treatment Clinical Notes Oct, Thyroid nodule (ICD-10 - E04.1) Thyroid US: - 4.5 x 3.6 x 2.7cm 2015 - 3.8 x 3.6 x 2.7cm 3.8cm 2021 - 4.4 x 3.4 x 2.7 2022 [facility] 01-01-2024 Evaluation note* Encounter Date Diagnosis Assessment Notes Treatment Notes Treatment Clinical Notes Oct, Thyroid nodule (ICD-10 - E04.1) Thyroid US: - 4.5 x 3.6 x 2.7cm 2015 - 3.8 x 3.6 x 2.7cm 3.8cm 2021 - 4.4 x 3.4 x 2.7 2022 [facility] 12-18-2023 Evaluation note* Encounter Date Diagnosis [...] S/P cervical spinal fusion (ICD-10 - Z98.1) [facility] 08-17-2023 Evaluation note* Encounter Date Diagnosis Assessment Notes Treatment Notes Treatment Clinical Notes May, Lateral epicondylitis, right elbow (ICD-10 - M77.11) [facility] 06-30-2023 Evaluation note* Encounter Date Diagnosis Assessment Notes Treatment Notes Treatment Clinical Notes Mar, Pure hypercholestero lemia (ICD-10 - E78.00) [facility] 04-28-2023 NotePROCEDURE: XR FOOT LT MIN 3 VIEWS HISTORY: Pain ; left heel pain for 6 weeks COMPARISON: None. FINDINGS: BONES:No fracture, acute abnormality, or significant arthropathy. SOFT TISSUES:No visible soft tissue swelling. EFFUSION:None visible. OTHER: Negative. IMPRESSION: 1. Normal examination. Electronically authenticated by: SIMON RED Date: 2023-02-04 07:[address] [place], [place] 2350304-03-2023 Evaluation note* Encounter Date Diagnosis Assessment Notes [...] (prost ate specific antigen) (ICD-10 - Z12.5) [facility] 03-08-2023 Evaluation note* Encounter Date Diagnosis Assessment Notes Treatment Notes Treatment Clinical Notes Dec, Controlled type 2 diabetes mellitus with hyperglycemia, without long-term current use of insulin (ICD-10 - E11.65) [facility] 02-23-2023 Evaluation note* Encounter Date Diagnosis [...] [ ] Infections may elevate BS temporarily [facility] 02-23-2023 Evaluation note* Encounter Date Diagnosis Assessment Notes Treatment Notes Treatment Clinical Notes Nov, Acute bronchitis due to other specified organisms (ICD-10 - J20.8) [facility] 07-15-2021 NoteChief Complaint referral for suprapubic [...] Stopped age 49 Years., (more content not included)...[facility]:Result Comment: Electronically Signed By: KIYA DIAZ, Reji Anderson.arian\Date and Time Signed: 04/23/21 10:32 [id number] NoteGastroenterology Upper Endoscopy, Adult Upper endoscopy is [...] including vitamins, herbs, eye drops, creams, and vvyw-biu-coprghx medicines. ? Any problems you or family [...] tells you to take them. ? Taking [id number] medicines, vitamins, herbs, and supplements. General instructions [...] Document Released: 09/23/2001 [employer] (more content not included)...[facility]Evaluation noteNo [employer] Other Evaluation note* Diagnosis Onset Date Resolution Status Hypercholesterolemia acute Hypertension acute Obesity acute KATHIE (obstructive sleep apnea) acute Thyroid nodule acute Type 2 diabetes mellitus with hyperglycemia acute [facility] Work Phone: Evaluation note* Diagnosis Right bicipital tenosynovitis Impingement syndrome of right shoulder region [facility]* Diagnosis Onset Date Resolution Status Admit Date Hypercholesterolemia acute Neel 2024 8:53am Hypertension acute October 8:53am Obesity acute October 29, 2024 8:53am KATHIE (obstructive sleep apnea) acute October 29, 2024 8:53am Thyroid nodule acute October 292024 8:53am Type 2 diabetes mellitus wit h hyperglycemia acute October 29 8:53am [facility] Work Phone: Evaluation note* Diagnosis Impingement syndrome of right shoulder- Primary Right bicipital tenosynovitis Impingement syndrome of right shoulder region Biceps tendinitis of right upper extremity [facility]* Diagnosis Right bicipital tenosynovitis Impingement syndrome of right shoulder region documented [facility]* Diagnosis Chronic, continuous use of opioids- Primary Right bicipital tenosynovitis Impingement syndrome of right shoulder region [facility]* Diagnosis Biceps tendinitis of right upper extremity- Primary Right bicipital tenosynovitis Impingement syndrome of right shoulder region Chronic, continuous use of opioids Impingement syndrome of right shoulder documented [facility]* Diagnosis Bicipital tendinitis of right shoulder- Primary documented [facility]* Diagnosis Right bicipital tenosynovitis Impingement syndrome of right shoulder region documented [facility]* Diagnosis Biceps tendinitis of right upper extremity- Primary Impingement syndrome of right shoulder documented [facility]* Diagnosis Right bicipital tenosynovitis Impingement syndrome of right shoulder region documented [facility] SystemHistory general Narrative - Reported* Type Description [...] 2014 Surgical History FNA right thyroid cyst 2013 Surgical History Ventral hernia repiar 11/2015 Surgical History EGD, Colonoscopy 11/2015 Hospitalization History see surgical history [facility] general Narrative - Reported* Type Description Date [...] Colonoscopy 11/2015 Hospitalization History see surgical history [facility] Other InstructionsNot on filedocumented in this encounter [facility] filedocumented in this encounter [facility] SystemInstructionsNot on filedocumented in this encounter [facility] SystemInstructionsNot on filedocumented in this encounter [facility] SystemInstructionsNot on filedocumented in this encounter [facility] SystemInstructionsNot on filedocumented in this encounter [facility] SystemInstructionsNot on filedocumented in this encounter [facility] SystemInstructionsNot on filedocumented in this encounter [facility] SystemReason for referral (narrative)* Reason Referral for right s ided thyroid mass Diagnosis 1 Thyroid nodule (E04. 1) Referral Organization [facility] simran Referring Provider First Name Andres Referring Provider Last Name Yemi Referring Provider Specialty Internal Id dicine Referred Organization [facility] Referred Provider Marivel Dasilva Referred Address ,[place], [place],[address] Referred Provider Specialty Ear, Nose an d [...] Include all three th yroid US reports [facility] Other Summary Purpose Family History Relationship Condition Age at Onset Recorded Date/T chitra father Chronic obstructive pulmonary disease Unk nown Heart disease Unknown Advance Directives Advance Directive Response Recorded Date/ Time Advance Directives No February 21 4 8:36am Advance Directive Response Recorded Date/ Time Advance Directives No February 21 4 7:36am Reason for Referral Reason *FU 10/18 Patient being referred for neck discomfort Diagnosis 1 Strain of neck muscl e, initial encounter (S16.1XXA) Diagnosis 2 Cervical spondylosis (M47.812) Referral Organization [facility] Referring Provider First Name Andres Referring Provider Last Name Yemi Referring Provider Specialty Internal Me dicine Referred Organization [facility] Referred Provider Cade Stephenson Referred Address [address] [place], [place],[address] Referred Provider Specialty Pain Medicin e Referral Priority Routine General Notes Mr. Trujillo has hx o f ACDF w/ recent increase in neck pain. His MRI does not correlate with his symptoms and is being referred for treatment La Nena Carrion 10/11/2023 07:19:30 AM >received today, attachments made, notes locked, referral faxed Clinical Notes Include MRI neck f: [id number] Reason Patient being referr ed for neck discomfort Diagnosis 1 Strain of neck muscl e, initial encounter (S16.1XXA) Diagnosis 2 Cervical spondylosis (M47.812) Referral Organization [facility] Referring Provider First Name Andres Referring Provider Last Name Yemi Referring Provider Specialty Internal Id dicine Referred Organization [facility] Referred Address [address] [place], [place],[address] Referred Provider Specialty Pain Medicin e Referral [...] nodule Type 2 diabetes mellitus with hyperglycemia Chief Complaint Admit Date 4 month f/u October 29, 2024 8 :53am Reason for Visit Admit Date Hypercholesterolemia October 29, 2024 8:53am Hypertension October 29, 2024 8 :53am Obesity October 29, 2024 8 :53am KATHIE (obstructive sleep apnea) October 292024 8:53am Thyroid nodule October 29, 2024 8 :53am Type 2 diabetes mellitus with hyperglyce jade October 29, 2024 8:53am Additional Source Comments (unrecognized sect ion and content) No Status Records FoundNo Status Records FoundNo Status Records FoundNo Status Records Found INFORMATION SOURCE (unrecogn ized section and content) DATE CREATED AUTHOR 10/22/2021 [facility] DATE CREATED AUTHOR AUTHOR'S ORGANIZ ATION 03/18/2023 [facility] DATE CREATED AUTHOR AUTHOR'S ORGANIZ ATION 12/28/2023 [facility] EPIC DATE CREATED AUTHOR AUTHOR'S ORGANIZ ATION 11/16/2024 [facility] REASON FOR VISIT (unrecogniz ed section and content) Reason Onset Date Comments Med Refill 10/11/2024 Reason Onset Date Comments Med Refill 10/19/2024 Reason Comments Neck Pain Reason Onset Date Comments Med Refill 11/01/2023 Reason Comments Neck Pain Shoulder Pain Reason Onset Date Comments Med Refill 01/24/2024 Reason Onset Date Comments Med Refill 07/24/2024 Reason Onset Date Comments Med Refill 08/06/2024 Care Teams (unrecognized sec tion and content) Team Status: Active Member Role Status Dates Andres Bragg DO Primary Care Provider Active Team Status: Active Member Role Status Dates Andres Bragg DO Primary Care Provide r, Attending Provider Active Start: October 08, 2024 Team Status: Inactive Member Role Status Dates Andres Bragg DO Primary Care Provide r, Attending Provider Active Start: October 29, 2024 End: October 29, 2024 Team Status: Inactive Member Role Status Dates Andres Bragg DO Primary Care Provide r, Attending Provider Active Start: June 26, 2024 End: June 26, 2024 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 Specialty Start Date End Date Andres Bragg DO [address] [place] [address] PCP - General 04/13/17 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 Specialty Start Date End Date Andres Bragg DO [address] [place] [address] PCP - General 04/13/17 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 Specialty Start Date End Date Andres Bragg DO [address] [place] [address] PCP - General 04/13/17 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 Specialty Start Date End Date Andres Bragg DO [address] [place] [address] PCP - General 04/13/17 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 Specialty Start Date End Date Andres Bragg DO [address] [place] [address] PCP - General 04/13/17 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 Specialty Start Date End Date Andres Bragg DO [address] [facility] [place] [address] PCP - General 04/13/17 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 Specialty Start Date End Date Andres Bragg DO [address] [place] [address] PCP General 04/13/17 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 Specialty Start Date End Date Andres Bragg DO [address] [facility] [place] [address] PCP General 04/13/17 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 Specialty Start Date End Date Andres Bragg DO [address] [place] [address] [facility] General 04/13/17 Goals (unrecognized section and content) [...] ON THE PRIMARY CLINICAL RECORDS. [facility] [employer] [facility]. provides no warranty or guarantee of the accuracy or completeness of information in this document.
[2025-02-27 11:19] LABS: Estimated Average Glucose 186 mg/dL; Glycohemoglobin A1C 8.1 % (4.5-6.2)
== END 2025-02-27 09:44 | disposition home or self-care (01) ==
LOC: LAB 09:44
PROVIDERS: PCP Internal Medicine; Visit Provider Internal Medicine
DX: E11.65 Type 2 diabetes mellitus with hyperglycemia (principal)
CPT/HCPCS: 36415; 83036

== ENCOUNTER 2025-03-06 07:26 | Outpatient (OUT) | payer BC, SELFPAY ==
--- NOTE | 2025-03-06 07:29 | US_ITS ---
The [address] [address] Patient Name: MEDINA PEACOCK MRN: [id number] date: 1965 Sex: M Assigned Patient Location: US Current Patient Location: Accession/Order Number: [id number] Exam Date: 03/06/2025 09:08 Report Date: 03/06/2025 09:13 At the request of: MARIVEL DASILVA MD Procedure: US thyroid THYROID ULTRASOUND COMPARISON: 01/31/2022 CLINICAL DATA: Follow-up nodularity. Previous negative biopsy. The right thyroid lobe remains enlarged measuring 7.1 x 3.1 x 4.0 cm. The left lobe measures 4.6 x 1.3 x 1.3 cm. The isthmus measures 1 - 2 mm. Thyroid echotexture is heterogeneous. There is hyperemia surrounding a large right thyroid nodule which measures 4.5 x 2.9 x 3.1 cm in size (TI-RADS 2). There is an irregular central cystic component which may have some debris. The rim is heterogeneously isoechoic. The lesion is similar to the prior. No other nodularity is identified. US/US thyroid IMPRESSION: SIMILAR COMPLEX RIGHT THYROID NODULE. Impression dictated by: Jaida Hood M.D. 03/06/2025 9:13 AM Dictation Location: [place] [address] Electronically authenticated by: [id number] Y Date: 03/06/2025 09:13
--- OUTSIDE RECORDS SUMMARY | 2025-03-06 07:29 | XMS_ITS | CCD ---
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 PA-C Work Phone: [facility] 08-08-2024 09:29-0400 Systolic blood pressure 139 mm[Hg] Bhaskar Verhoff PA-C Work Phone: [facility] 06-26-2024 08:57-0400 Body height 182.88 cm [facility] 06-26-2024 08:57-0400 Body mass index (BMI) [Ratio] 31.6 kg/m2 [facility] 06-26-2024 08:57-0400 Body weight 105.68 kg [facility] 06-26-2024 08:57-0400 Diastolic blood pressure 80 mm[Hg] [facility] 06-26-2024 08:57-0400 Heart rate 73 /min [facility] 06-26-2024 08:57-0400 Respiratory rate 12 /min [facility] 06-26-2024 08:57-0400 Systolic blood pressure 130 mm[Hg] [facility] 05-09-2024 08:56-0400 Body height 185.4 cm Bhaskar Verhoff PA-C Work Phone: [facility] 05-09-2024 08:56-0400 Body mass index (BMI) [Ratio] 30.48 kg/m2 Bhaskar Verhoff PA-C Work Phone: [facility] 05-09-2024 08:56-0400 Body weight 104.78 kg Bhaskar Verhoff PA-C Work Phone: [facility] 05-09-2024 08:56-0400 Diastolic blood pressure 85 mm[Hg] Bhaskar Verhoff PA-C Work Phone: [facility] 05-09-2024 08:56-0400 Heart rate 67 /min Bhaskar Verhoff PA-C Work Phone: [facility] 05-09-2024 08:56-0400 Respiratory rate 18 /min Bhaskar Verhoff PA-C Work Phone: [facility] 05-09-2024 08:56-0400 SaO2% (BldA) [Mass fraction] 98 % Bhaskar Verhoff PA-C Work Phone: [facility] 05-09-2024 08:56-0400 Systolic blood pressure 142 mm[Hg] Bhaskar Verhoff PA-C Work Phone: [facility] 12-14-2023 12:55-0500 Body height 185.4 cm Bhaskar Verhoff PA-C Work Phone: [facility] 12-14-2023 12:55-0500 Body mass index (BMI) [Ratio] 31.8 kg/m2 Bhasakr Verhoff PA-C Work Phone: [facility] 12-14-2023 12:55-0500 Body weight 109.32 kg Bhaskar Verhoff PA-C Work Phone: [facility] 12-14-2023 12:55-0500 Diastolic blood pressure 93 mm[Hg] Bhaskar Verhoff PA-C Work Phone: [facility] 12-14-2023 12:55-0500 Heart rate 82 /min Bhaskar Verhoff PA-C Work Phone: [email or web address] 12-14-2023 12:55-0500 Respiratory rate 16 /min Bhaskar Saezhoff PA-C Work Phone: [email or web address] 12-14-2023 12:55-0500 SaO2% (BldA) [Mass fraction] 99 % Bhaskar Saezhoff PA-C Work Phone: [email or web address] 12-14-2023 12:55-0500 Systolic blood pressure 135 mm[Hg] Bhaskar Sehoff PA-C Work Phone: [email or web address] 10-16-2023 18:45-0500 Body height 182.88 cm Andres Ball Other [facility] Other 09-26-2023 15:45-0500 Body height 182.88 cm Andres Ball Other [facility] Other 09-26-2023 15:45-0500 Body mass index (BMI) [Ratio] 32.79 kg/m2 Andres Ball Other [facility] Other 09-26-2023 15:45-0500 Body weight 109.68 kg Andres Ball Other [facility] Other 09-26-2023 15:45-0500 Diastolic blood pressure 82 mm[Hg] Andres Ball Other [facility] Other 09-26-2023 15:45-0500 Systolic blood pressure 122 mm[Hg] Andres Ball Other [facility] Other 01-10-2023 11:00-0400 Body height 182.88 cm Andres Ball Other [facility] Other 01-10-2023 11:00-0400 Body mass index (BMI) [Ratio] 33.2 kg/m2 Andres Ball Other [facility] Other 01-10-2023 11:00-0400 Body weight 111.04 kg Andres Sensser Other [facility] Other 01-10-2023 11:00-0400 Diastolic blood pressure 82 mm[Hg] Andres Sensser Other [facility] Other 01-10-2023 11:00-0400 Respiratory rate 12 /min Andres Sensser Other [facility] Other 01-10-2023 11:00-0400 Systolic blood pressure 122 mm[Hg] [employer] Other [facility] Other Encounters Encounter Date Encounter Type Care Provider Facility Start: 11-29-2024 End: 12-05-2024 Refill Suzi Caban RN [facility] Comment on above: Right bicipital teno synovitis; Impingement syndrome of right shoulder region Start: 11-14-2024 End: 11-14-2024 Office outpatient visit 25 minutes Bhaskar Stephens PA-C Work Phone: [facility] Comment on above: Impingement syndrome of right shoulder (Primary Dx); Right bicipital tenosynovitis; Impingement syndrome of right shoulder region; Biceps tendinitis of right upper extremity Start: 11-14-2024 End: 11-14-2024 ambulatory BHASKAR STEPHENS [facility] Start: 10-29-2024 End: 10-29-2024 ambulatory [facility] Work Phone: Start: 10-29-2024 End: 10-29-2024 Patient encounter procedure [facility] Work Phone: Start: 10-19-2024 End: 10-19-2024 Refill Suzi Caban RN [facility] Comment on above: Right bicipital teno synovitis; Impingement syndrome of right shoulder region Start: 10-11-2024 End: 10-11-2024 Refill Suzi Caban RN [facility] Comment on above: Right bicipital teno synovitis; Impingement syndrome of right shoulder region Start: 10-08-2024 Non-patient / Non-visit [facility] Work Phone: Start: 08-22-2024 End: 08-30-2024 Telephone encounter Suzi Caban RN [facility] Start: 08-08-2024 End: 08-08-2024 Office outpatient visit 25 minutes Bhaskar AQUINO-C Work Phone: [facility] Comment on above: Biceps tendinitis of right upper extremity (Primary Dx); Impingement syndrome of right shoulder Start: 08-08-2024 End: 08-08-2024 ambulatory [facility] Start: 08-06-2024 End: 08-07-2024 Refill Irene Bryson RN [facility] Start: 07-24-2024 End: 07-24-2024 Refill Irene Bryson RN [facility] Comment on above: Right bicipital teno synovitis; Impingement syndrome of right shoulder region Start: 06-26-2024 End: 06-26-2024 ambulatory [facility] Work Phone: Start: 06-26-2024 End: 06-26-2024 Patient encounter procedure [facility] Work Phone: Start: 05-09-2024 End: 05-09-2024 Office outpatient visit 25 minutes Bhaskar Stephens PA-C Work Phone: [facility] Comment on above: Biceps tendinitis of right upper extremity (Primary Dx); Right bicipital tenosynovitis; Impingement syndrome of right shoulder region; Chronic, continuous use of opioids; Impingement syndrome of right shoulder Start: 05-09-2024 End: 05-09-[address] [facility] Start: 01-24-2024 End: 01-24-2024 David Pierre RN [facility] Comment on above: Bicipital tendinitis of right shoulder (Primary Dx) Start: 12-27-2023 End: 12-27-2023 ambulatory MARIVEL DASILVA Not Available Start: 12-14-2023 End: 12-14-2023 ambulatory BHASKAR Lm [facility] Start: 12-14-2023 Telephone encounter Lindsey Mauro CNA [facility] Start: 12-14-2023 End: 12-14-2023 Office outpatient visit 25 minutes Bhaskar Stephens PA-C Work Phone: [facility] Comment on above: Chronic, continuous use of opioids (Primary Dx); Right bicipital tenosynovitis; Impingement syndrome of right shoulder region Start: 12-14-2023 End: 12-14-2023 ambulatory BHASKAR N [facility] Start: 11-14-2023 End: 11-14-2023 ambulatory Andres Bragg Other [facility] Other Start: 11-14-2023 Office outpatient vi sit 15 minutes Andres DOBBS [facility] Start: 11-14-2023 Telephone encounter [facility] Start: 11-10-2023 End: 11-10-2023 ambulatory Andres Bragg Other [facility] Other Start: 11-10-2023 Telephone encounter Andres Zuluaga [employer] Start: 11-09-2023 End: 11-09-2023 ambulatory Andres Bragg Other [facility] Other Start: 11-09-2023 Telephone encounter [facility] Start: 11-07-2023 End: 11-07-2023 ambulatory Andres Ball Other [facility] Other Start: 11-07-2023 Telephone encounter Andres Ball [facility] Start: 11-03-2023 Telephone encounter Suzi Caban RN [facility] Start: 11-02-2023 End: 11-02-2023 ambulatory Andres Ball Other [facility] Other Start: 11-02-2023 Telephone encounter Andres Ball [facility] Start: 11-01-2023 David Pierre RN [facility] Comment on above: Right bicipital teno synovitis; Impingement syndrome of right shoulder region Start: 10-19-2023 End: 10-19-2023 ambulatory Andres Ball Other [facility] Other Start: 10-19-2023 Telephone encounter Andres Ball [facility] Start: 10-17-2023 End: 10-17-2023 ambulatory Andres Ball Other [facility] Other Start: 10-17-2023 Telephone encounter Andres Ball [facility] Start: 10-16-2023 End: 10-16-2023 ambulatory Andres Ball Other [facility] Other Start: 10-16-2023 Telephone encounter Andres Ball [facility] Start: 10-14-2023 End: 10-14-2023 ambulatory Andres Ball Other [facility] Other Start: 10-14-2023 Telephone encounter Andres Ball [facility] Start: 10-12-2023 End: 10-12-2023 ambulatory Andres Ball Other [facility] Other Start: 10-12-2023 Telephone encounter Andres Ball [facility] Start: 10-11-2023 End: 10-11-2023 ambulatory Andres Ball Other [facility] Other Start: 10-11-2023 Telephone encounter Andres Bragg [facility] Start: 10-10-2023 End: 10-10-2023 ambulatory Andres Bragg Other [facility] Other Start: 10-10-2023 Telephone encounter Andres Bragg [facility] Start: 10-07-2023 End: 10-07-2023 ambulatory Andres Bragg Other [facility] Other Start: 10-07-2023 Telephone encounter Andres Bragg [facility] Start: 09-26-2023 End: 09-26-2023 ambulatory Andres Bragg Other [facility] Other Start: 09-26-2023 Office outpatient vi sit 25 minutes Andres Yemi [facility] Start: 06-14-2023 End: 06-14-2023 ambulatory Andres Bragg Other [facility] Other Start: 06-14-2023 Telephone encounter Andres Bragg [facility] Start: 05-26-2023 End: 05-26-2023 ambulatory Andres Bragg Other [facility] Other Start: 05-26-2023 Telephone encounter Andres Bragg [facility] Start: 04-08-2023 End: 04-08-2023 ambulatory Andres Bragg Other [facility] Other Start: 04-08-2023 Telephone encounter Andres Yemi [facility] Start: 03-07-2023 End: 03-07-[address] ANDRES BRAGG Facility:[facility] Start: 02-10-2023 ambulatory TROY Yarbrough y:[facility] Start: 02-03-2023 End: 02-04-[address] ANDRES BRAGG Facility:[facility] Start: 01-10-2023 End: 01-10-2023 ambulatory Andres Bragg Other [facility] Other Start: 01-10-2023 Encounter for genera l adult medical examination without abnormal findings Andres Bragg [facility] Start: 01-10-2023 Periodic preventive med est patient 40-64yrs Andres Yemi [facility] Start: 12-15-2022 End: 12-15-2022 ambulatory Andres Bragg Other [facility] Other Start: 12-15-2022 Telephone encounter Andres Bragg [facility] Start: 12-02-2022 End: 12-02-2022 ambulatory Andres Bragg Other [facility] Other Start: 12-02-2022 Office outpatient vi sit 15 minutes Andres Bragg [facility] Start: 12-02-2022 Telephone encounter Andres Bragg [facility] Start: 10-14-2022 End: 10-15-[address] ANDRES BRAGG Facility:[facility] Start: 09-24-2022 End: 09-25-[address] ANDRES BRAGG Facility:[facility] Start: 09-17-2022 End: 09-18-[address] ANDRES BRAGG Facility:[facility] Start: 05-19-2022 End: 05-19-2022 ambulatory JIM NGOEY . Facility: Plan of Treatment Date Care Activity Detail Author Start: 05-19-2032 DTaP,Tdap and Td Vac cines (2 - Tdap) DTaP,Tdap and Td Vaccines (2 - Tdap) [facility] Start: 11-14-2025 Adult BMI Screening Adult BMI Screen ing [facility] Start: 11-14-2025 Tobacco Screening Tobacco Screening [facility] Start: 08-08-2025 Adult BMI Screening Adult BMI Screen ing [facility] Start: 08-08-2025 Tobacco Screening Tobacco Screening [facility] Start: 05-09-2025 Adult BMI Screening Adult BMI Screen ing [facility] Start: 05-09-2025 Tobacco Screening Tobacco Screening [facility] Start: 02-13-2025 End: 02-13-2025 Patient encounter procedure 02/13/2025 9:30 AM EDT Office Visit [facility] [address] [place] [address] Bhaskar Stephens PA-C [address] [place] [address] [facility] Start: 12-13-2024 Adult BMI Screening Adult BMI Screen ing [facility] Start: 12-13-2024 Tobacco Screening Tobacco Screening [facility] Start: 11-14-2024 End: 11-14-2024 Patient encounter procedure 11/14/2024 9:30 AM EST Office Visit [facility] [address] [place] [address] Bhaskar Stephens PA-C [address] [place] [address] [facility] Start: 08-17-2024 Adult BMI Screening Adult BMI Screen ing [facility] Start: 08-17-2024 Tobacco Screening Tobacco Screening [facility] Start: 08-08-2024 End: 08-08-2024 Patient encounter procedure 08/08/2024 9:30 AM EDT Office Visit [facility] [address] [place] [address] Bhaskar Stephens PA-C [address] [place] [address] [facility] Start: 06-10-2024 COVID-19 Vaccine ( season) COVID-19 Vaccine ( season) [facility] Start: 06-10-2024 COVID-19 Vaccine ( season) COVID-19 Vaccine () [facility] Start: 06-10-2024 Influenza vaccination Influenza Vacc ine [facility] Start: 03-14-2024 End: 03-14-2024 Patient encounter procedure 03/14/2024 9:30 AM EDT Office Visit [facility] [address] [place] [phone] Bhaskar Stephens PA-C [address] [place] [address] [facility] Start: 11-16-2023 End: 11-16-2023 Patient encounter procedure 11/16/2023 8:30 AM EST Office Visit [facility] [address] [place] [id number] Bhaskar Stephens PA-C [address] [place] [address] [facility] Start: 06-10-2023 COVID-19 Vaccine ( season) COVID-19 Vaccine ( season) [facility] Start: 06-10-2023 Influenza vaccination Influenza Vacc ine [facility] Start: 2014 Administration of varicella zoster vaccine Zoster (Shingles) Vaccine (1 of 2) [facility] Start: 1982 Adult BMI Follow Up Plan Adult BMI Follow Up Plan [facility] Start: 1976 [facility] panel - Serum or Plasma [facility] End: 08-08-2025 Controlled Substance Monitoring, U Controlled Substance Monitoring, U Lab Routine Biceps tendinitis of right upper extremity Impingement syndrome of right shoulder 1 Occurrences starting 08/08/2024 until 08/08/2025 [facility] Work Phone: Comment on above: 1 Occurrences starti ng 08/08/2024 until 08/08/2025 Microalbumin [Mass/volume] in Urine [facility] Immunizations Immunization Date Immunization Notes Care Provider Fa cility 06-26-2024 influenza, seasonal, injectable, preservative free [facility] 08-18-2023 influenza virus vaccine, unspecified formulation Krystal Pierre RN [facility] 07-29-2022 influenza virus vaccine, split virus (incl. purified surface antigen) Andres Bragg Other [facility] Other 07-29-2022 influenza virus vaccine, unspecified formulation Krystal Pierre RN [facility] 07-29-2022 influenza, injectabl e, quadrivalent, preservative free Andres Bragg Other [facility] 05-19-2022 diphtheria, tetanus toxoids and acellular pertussis vaccine, unspecified formulation Andres Bragg Other [facility] 07-22-2021 influenza virus vaccine, split virus (incl. purified surface antigen) Andres Bragg Other [facility] Other 07-22-2021 influenza virus vaccine, unspecified formulation [facility] 01-13-2021 COVID-19 Vaccine Pfi zer - Documentation Purposes Only Andres Bragg Other [facility] 12-22-2020 COVID-19 Vaccine Pfi zer - Documentation Purposes Only Andres Bragg Other [facility] 07-26-2018 pneumococcal polysaccharide vaccine, 23 valent Andres Bragg Other [facility] 06-10-2016 influenza virus vaccine, split virus (incl. purified surface antigen) Andres Bragg Other [facility] Other 06-10-2016 influenza virus vaccine, unspecified formulation [facility] Payers Date Payer Category Payer [id number] 2019 Unknown [id number] 2003 Worker's Comp, Other (unspecified) [id number] 2003 Worker's Compensation 1.2.84 [id number] 2003 Unknown [id number] 1964 Unknown [id number] 2.16.840.1.380432.3.579.2. 593 1964 Unknown [id number] 2.16.840.1.530374.3.579.2. 593 1964 Unknown [id number] 2.16.840.1.397642.3.579.2. 593 1964 Unknown [id number] 2.16.840.1.230808.3.579.2. 593 1964 Unknown [id number] 2.16.840.1.017889.3.579.2. 593 1964 Unknown [id number] 2.16.840.1.488008.3.579.2. 593 1964 Unknown [id number] 2.16.840.1.991040.3.579.2. 593 1964 Unknown [id number] 2.16.840.1.692263.3.579.2. 1259 1964 Unknown [id number] 2.16.840.1.829870.3.579.2. 1286 1964 Unknown [id number] 2.16.840.1.672456.3.579.2. 1286 1964 Unknown [id number] 2.16.840.1.229913.3.579.2. 1286 1964 Unknown [id number] 2.16.840.1.641879.3.579.2. 1286 1964 Unknown [id number] 2.16.840.1.046837.3.579.2. 1286 1959 Medicare [id number] Worker's Compensation Robbie carty [facility] [id number] Social History Date Type Detail Facility Start: 10-22-2020 End: 08-08-2024 Sex Assigned At [facility] Start: 1965 Sex Assigned At Male [facility] Start: 08-17-2023 Tobacco smoking stat [facility] Ex-smoker [facility] History of tobacco use Current smoker [facility] Start: 08-17-2023 Tobacco use and exposure Smokeless tobacco non-user [facility] Start: 08-08-2024 End: 11-14-2024 Alcoholic beverage intake Current drinker of alcohol (finding) [facility] Start: 10-22-2020 End: 08-08-2024 Alcoholic beverage intake [facility] Childcare Unknown [facility] Start: 04-14-2017 [facility] Start: 1965 [facility] assigned at [facility] Start: 05-15-2015 End: 10-29-2024 Sex Male (finding) [facility] Tobacco smoking stat [facility] Unknown if ever smoked [facility] Work Phone: Medical Equipment Procedure Code [...] on 11/27/2024 to inform this office that [facility] PA for Tramadol was denied. No recent PA was found in regards to this medication. Call was placed to [facility] in [place] to clarify issue. Cleaning Specialist spoke with Kathleen who confirmed that the patient has not picked up Tramadol. Call was then transferred to pharmacistMaya, Maya states that she will have corporate review the issue to see if they are able to resolve. Maya states she will call this office back. Await response. Cleaning Specialist called to follow up Tramadol and [facility] denial of medication. Cleaning Specialist spoke with Rachel who asked for primary insurance and [facility] information. Rachel was informed that medication should be covered by [facility] and not patient's primary insurance. Rachel asks for updated [facility] card information as she states she doesn't have any of the information on file. She is asked to contact patient. Prior authorization was completed for Tramadol yesterday. Today a PA request came via faxed requesting the exact same information. Cleaning Specialist called [employer] customer care to clarify what it is that they are requesting. A brand medication is not being requested and the prescription is a continuation of medication therapy. Cleaning Specialist spoke with Roxanne who after several periods of placing global technical writer on hold stated that she was not sure what the issue is as patient's dose, quantity and frequency are within the allowed parameters. Roxanne provided a phone number ( ) for [facility] Pharmacy Benefits as they handle prior auths. Shelly suggests canceling the current order in the system and sending a new script after removing the diagnosis of impingement syndrome of right shoulder region. Patient has not pickler helper script. If you agree please review and sign. documented in this encounter [email or web address] 11-29-2024 Telephone encounter Note Patient called office on 11/27/2024 to inform this office that [facility] PA for Tramadol was denied. No recent PA was found in regards to this medication. Call was placed to [facility] in [place] to clarify issue. Cleaning Specialist spoke with Kathleen who confirmed that the patient has not picked up Tramadol. Call was then transferred to pharmacistMaya, Maya states that she will have corporate review the issue to see if they are able to resolve. Maya states she will call this office back. Await response. Cleaning Specialist called to follow up Tramadol and [facility] denial of medication. Cleaning Specialist spoke with Rachel who asked for primary insurance and [facility] information. Rachel was informed that medication should be covered by [facility] and not patient's primary insurance. Rachel asks for updated [facility] card information as she states she doesn't have any of the information on file. She is asked to contact patient. [facility] 11-29-2024 Telephone encounter Note Prior authorization was completed for Tramadol yesterday. Today a PA request came via faxed requesting the exact same information. Cleaning Specialist called [employer] customer care to clarify what it is that they are requesting. A brand medication is not being requested and the prescription is a continuation of medication therapy. Cleaning Specialist spoke with Roxanne who after several periods of placing global technical writer on hold stated that she was not sure what the issue is as patient's dose, quantity and frequency are within the allowed parameters. Roxanne provided a phone number ( ) for [facility] Pharmacy Benefits as they handle prior auths. Shelly suggests canceling the current order in the system and sending a new script after removing the diagnosis of impingement syndrome of right shoulder region. Patient has not pickler helper script. If you agree please review and sign. [email or web address] 11-14-2024 History of Presen t illness Narrative [facility] [address] [place] [address] Patient: Medina Trujillo Sex: male : 1965 Age: 59 y.o. PCP: ANDRES BRAGG, 11/14/2024 Medina Margareth Ronnie is here for a(n) 3 month follow up for his [facility] work injury. He reports his pain is [...] 11/03/2018 Performed by Phani López MD at [facility] ROTATOR CUFF REPAIR Right 2004,'07,','12 [...] as needed for pain. This is a [facility] Fill date 11/18/2024 Impingement syndrome of right shoulder region - traMADoL (ULTRAM) 50 mg tablet; Take 1 tablet (50 mg total) by mouth 3 (three) times a day as needed for pain. This is a [facility] Fill date 11/18/2024 Biceps tendinitis of right [...] PA-C 11/14/24 1113 documented in this encounter [facility] 10-19-2024 Miscellaneous Notes Last OV: 08/08/2024 Next OV: 12/04/2024 OARRS appropriate: yes Last UDS: 12/14/2023. 08/08/2024 misplaced by lab Pharmacy: [facility] [place] Previous script was sent to [facility]. The script should have went to [facility] in [place]. New order has been pended. Order at [facility] has been canceled. Cleaning Specialist spoke with YOEL, the pharmacist, who confirms that Tramadol script was canceled. New order has been pended for review and signature. documented in this encounter [facility] 10-19-2024 Telephone encounter Note Last OV: 08/08/2024 Next OV: 12/04/2024 OARRS appropriate: yes Last UDS: 12/14/2023. 08/08/2024 misplaced by lab Pharmacy: [facility] [place] Previous script was sent to [facility]. The script should have went to [facility] [place]. New order has been pended. Order at [facility] has been canceled. Cleaning Specialist spoke with YOEL, the pharmacist, who confirms that Tramadol script was canceled. New order has been pended for review and signature. [facility] 10-11-2024 Miscellaneous Notes Last OV: 08/08/2024 Next OV: 12/04/2024 OARRS appropriate: yes Last UDS: 12/14/2023. 08/08/2024 misplaced by lab [facility]acy: [facility] documented in this encounter [facility] 10-11-2024 Telephone encounter Note Last OV: 08/08/2024 Next OV: 12/04/2024 OARRS appropriate: yes Last UDS: 12/14/2023. 08/08/2024 misplaced by lab [facility]acy: [facility] 08-22-2024 Miscellaneous Notes UDS was collected and sent to lab 08/08/2024. As of 08/14/2024 the order had not been released. [facility] to follow up. Cleaning Specialist spoke with Abdirahman who then spoke with his coworkers in the lab regarding this matter. The urine could not be found. This has been discussed with Lab line maintenance supervisor and Shelly. The new process will be that going forward the chemical lab technician will come and pickler helper specimens directly from our department. Noted documented in this encounter [facility] 08-22-2024 Telephone encounter Note UDS was collected and sent to lab 08/08/2024. As of 08/14/2024 the order had not been released. Call was placed to [facility] to follow up. Cleaning Specialist spoke with Abdirahman who then spoke with his coworkers in the lab regarding this matter. The urine could not be found. This has been discussed with Lab line maintenance supervisor and Shelly. The new process will be that going forward the chemical lab technician will come and pickler helper specimens directly from our department. [facility] 08-22-2024 Telephone encounter Note Noted [facility] 08-08-2024 History of Presen t illness Narrative [facility] [address] [place] [address] Patient: Medina Trujillo Sex: male : 1965 Age: 58 y.o. PCP: ANDRES BRAGG, DO 08/08/2024 Medina Trujillo is here for a 3 month follow up for his [facility] work injury. He reports his pain remains [...] Impairment. Past Medical History: Diagnosis Date Aneurysm ([facility]) Cervical disc syndrome Chronic musculoskeletal pain Chronic [...] 11/03/2018 Performed by Phani López MD at [facility] ROTATOR CUFF REPAIR Right 2004,'07,'09,'12 [...] PA-C 08/08/24 1152 documented in this encounter [facility] 08-06-2024 Miscellaneous Notes Last Office Visit: 05/09/2024 Next Office Visit: 08/08/2024 Last Urine Drug Screen: Lab Results Component Value Date BENZOSCRN Negative 12/14/2023 OARRS appropriate Phone call to patient to clarify medication. He states he has not taken Mobic for some time. Can update profile with appt 08/08/2024 documented in this encounter [facility] 08-06-2024 Telephone encounter Note Last Office Visit: 05/09/2024 Next Office Visit: 08/08/2024 Last Urine Drug Screen: Lab Results Component Value Date BENZOSCRN Negative 12/14/2023 OARRS appropriate [facility] 08-06-2024 Telephone encounter Note Phone call to patient to clarify medication. He states he has not taken Mobic for some time. Can update profile with appt 08/08/2024 [facility] 07-24-2024 Miscellaneous Notes Last Office Visit: 05/09/2024 Next Office Visit: 08/08/2024 Last Urine Drug Screen: Lab Results Component Value Date BENZOSCRN Negative 12/14/2023 OARRS appropriate documented in this encounter [facility] 07-24-2024 Telephone encounter Note Last Office Visit: 05/09/2024 Next Office Visit: 08/08/2024 Last Urine Drug Screen: Lab Results Component Value Date BENZOSCRN Negative 12/14/2023 OARRS appropriate [facility] 05-09-2024 History of Presen t illness Narrative [facility] [address] [place] [address] Patient: Medina Trujillo Sex: male : 1965 Age: 58 y.o. PCP: ANDRES BRAGG, 05/09/2024 Medina Trujillo is here for a(n) follow up for his shoulder pain due to his [facility] work injury. Chief Complaint Patient presents with [...] 11/03/2018 Performed by Phani López MD at [facility] ROTATOR CUFF REPAIR Right 2004,'07,'09,'12 [...] as needed for pain. This is a [facility] Impingement syndrome of right shoulder region - traMADoL (ULTRAM) 50 mg tablet; Take 1 tablet (50 mg total) by mouth 3 (three) times a day as needed for pain. This is a [facility] Chronic, continuous use of opioids - naloxone [...] PA-C 05/09/24 1009 documented in this encounter [facility] 01-24-2024 Miscellaneous Notes Last Office Visit: Next Office Visit: 03/14/2024 Last Urine Drug Screen: Lab Results Component Value Date BENZOSCRN Negative 12/14/2023 OARRS appropriate documented in this encounter [facility] 01-24-2024 Telephone encounter Note Last Office Visit: Next Office Visit: 03/14/2024 Last Urine Drug Screen: Lab Results Component Value Date BENZOSCRN Negative 12/14/2023 OARRS appropriate [facility] 12-14-2023 Miscellaneous Notes Per Bhaskar Stephens patient called and reminded to call PCP for evaluation and treatment for thyroid nodule noted in Cervical spine MRI. Patient informed Bhaskar would like him to make an appointment to discuss treatment for his neck pain after reviewing C=Spine MRI done at [facility]. He would like to see his PCP for the thyroid issue and then will call us to schedule. Lindsey Mauro CNA 12/14/23 1420 noted Pt calls to let us know that he has an appointment scheduled for 12/27/[address] Dasilva (ENT) to address thyroid. noted documented in this encounter [facility] 12-14-2023 Telephone encounter Note Per Bhaskar Stephens patient called and reminded to call PCP for evaluation and treatment for thyroid nodule noted in Cervical spine MRI. Patient informed Bhaskar would like him to make an appointment to discuss treatment for his neck pain after reviewing C=Spine MRI done at [facility]. He would like to see his PCP for the thyroid issue and then will call us to schedule. Lindsey Mauro CNA 12/14/23 1420 [facility] 12-14-2023 Telephone encounter Note noted [facility] 12-14-2023 Telephone encounter Note Pt calls to let us know that he has an appointment scheduled for 12/27/[address] Dasilva (ENT) to address thyroid. [facility] 12-14-2023 Telephone encounter Note noted [facility] 12-14-2023 History of Presen t illness Narrative [facility] [address] [place] [address] Patient: Medina Trujillo Sex: male : 1965 Age: 58 y.o. PCP: ANDRES BRAGG, 12/14/2023 Medina Trujillo is here for a 3 month follow up for his [facility] work injury. No chief complaint on file. [...] 11/03/2018 Performed by Phani López MD at [facility] ROTATOR CUFF REPAIR Right 2004,',',12 [...] for and in the presence of BHASKAR TSEPHENS PA-C by Lindsey Mauro CNA. Provider Statement: IBHASKAR PA-C, personally performed the services described in the documentation, as scribed by Lindsey Mauro CNA in my presence, and it is both accurate and complete. Lindsey Mauro CNA 12/14/23 1342 Bhaskar Stephens PA-C 12/14/23 1420 documented in this encounter [facility] 11-14-2023 Evaluation note Encounter Date Diagnosis Assessment Notes Nov, COVID- 19 (ICD-1 0 - U07.1) [facility] 02-05-2024 Evaluation note* Encounter Date Diagnosis [...] in public places for complete 10 days [facility] 01-31-2024 Evaluation note* Encounter Date Diagnosis Assessment Notes Treatment Notes Treatment Clinical Notes Oct, Type 2 diabetes mellitus with hyperglycemia, without long-term current use of insulin (ICD-10 - E11.65) [facility] 01-29-2024 Evaluation note* Encounter Date Diagnosis Assessment Notes Treatment Notes Treatment Clinical Notes Oct, Type 2 diabetes mellitus with hyperglycemia, without long-term current use of insulin (ICD-10 - E11.65) [facility] 01-25-2024 Miscellaneous Notes* Telephone Encounter - Suzi Caban RN - 11/03/2023 2:45 PM EST Prior authorization request received for Tramadol. Call placed to [facility] to remind them that Tramadol should be run through [facility] and not patient's commercial insurance. Cleaning Specialist spoke with [facility]. She states that Tramadol was ran through patient's private insurance but has since been sent to [facility]. Justine states that there is a note in their system that states all prescriptions from [facility] need to be run through [facility] however they have been running scripts through patient's private insurance since May 2023. She states they last submitted Tramadol prescription to [facility] October 14, 2022. Justine states that due to the time lapse with [facility] submissions, a PA will be required. * Telephone Encounter - Irene Bryson RN - 11/03/2023 2:45 PM EST Prior auth [employer] [id number] faxed to [facility] Received approval * Telephone Encounter - Irene Bryson RN - 11/03/2023 2:45 PM EST Called [facility] spoke to justine re: prior auth approved [facility] [id number] Telephone encounter Note* Telephone Encounter - Suzi Caban RN - 11/03/2023 2:45 PM EST Prior authorization request received for Tramadol. Call placed to [facility] to remind them that Tramadol should be run through [facility] and not patient's commercial insurance. Cleaning Specialist spoke with [facility]. She states that Tramadol was ran through patient's private insurance but has since been sent to [facility]. Justine states that there is a note in their system that states all prescriptions from [facility] need to be run through [facility] however they have been running scripts through patient's private insurance since May 2023. She states they last submitted Tramadol prescription to [facility] October 14, 2022. Justine states that due to the time lapse with [facility] submissions, a PA will be required. [facility] [id number] Telephone encounter Note* Telephone Encounter - Irene Bryson RN - 11/03/2023 2:45 PM EST Prior auth [employer] [id number] faxed to [facility] Received approval [facility] Telephone encounter Note* Telephone Encounter - Irene Bryson RN - 11/03/2023 2:45 PM EST [facility] spoke to justine re: prior auth approved [id number] Evaluation note* Encounter Date Diagnosis Assessment Notes Treatment Notes Treatment Clinical Notes Oct, Type 2 diabetes mellitus with hyperglycemia, without long-term current use of insulin (ICD-10 - E11.65) [facility] 01-23-2024 Miscellaneous Notes* Telephone Encounter - Krystal Pierre RN - 11/01/2023 11:15 AM EST Last Office Visit: 08/17/2023 Next Office Visit: 11/16/2023 Last Urine Drug Screen: Lab Results Component Value Date BENZOSCRN Negative 05/17/2023 OARRS appropriate [facility] Tele[facility] encounter Note* Telephone Encounter - Krystal Pierre RN - 11/01/2023 11:15 AM EST Last Office Visit: 08/17/2023 Next Office Visit: 11/16/2023 Last Urine Drug Screen: Lab Results Component Value Date BENZOSCRN Negative 05/17/2023 OARRS appropriate [facility] [id number] Evaluation note* Encounter Date Diagnosis Assessment Notes Treatment Notes Treatment Clinical Notes Oct, Controlled type 2 diabetes mellitus with hyperglycemia, without long-term current use of insulin (ICD-10 - E11.65) [facility] 01-08-2024 Evaluation note* Encounter Date Diagnosis Assessment Notes Treatment Notes Treatment Clinical Notes Oct, Type 2 diabetes mellitus with hyperglycemia, without long-term current use of insulin (ICD-10 - E11.65) [facility] 01-07-2024 Evaluation note* Encounter Date Diagnosis Assessment Notes Treatment Notes Treatment Clinical Notes Oct, Thyroid nodule (ICD-10 - E04.1) Thyroid US: - 4.5 x 3.6 x 2.7cm 2015 - 3.8 x 3.6 x 2.7cm 3.8cm 2021 - 4.4 x 3.4 x 2.7 2022 [facility] 01-05-2024 Evaluation note* Encounter Date Diagnosis Assessment Notes Treatment Notes Treatment Clinical Notes Oct, Type 2 diabetes mellitus with hyperglycemia, without long-term current use of insulin (ICD-10 - E11.65) [facility] 01-03-2024 Evaluation note* Encounter Date Diagnosis Assessment Notes Treatment Notes Treatment Clinical Notes Oct, Thyroid nodule (ICD-10 - E04.1) Thyroid US: - 4.5 x 3.6 x 2.7cm 2015 - 3.8 x 3.6 x 2.7cm 3.8cm 2021 - 4.4 x 3.4 x 2.7 2022 Referral to ENT for opinion. Repeat thyroid US in 3-6mo vs repeat FNA [facility] 01-02-2024 Evaluation note* Encounter Date Diagnosis Assessment Notes Treatment Notes Treatment Clinical Notes Oct, Thyroid nodule (ICD-10 - E04.1) Thyroid US: - 4.5 x 3.6 x 2.7cm 2015 - 3.8 x 3.6 x 2.7cm 3.8cm 2021 - 4.4 x 3.4 x 2.7 2022 [facility] Other 01-01-2024 Evaluation note* Encounter Date Diagnosis Assessment Notes Treatment Notes Treatment Clinical Notes Oct, Thyroid nodule (ICD-10 - E04.1) Thyroid US: - 4.5 x 3.6 x 2.7cm 2015 - 3.8 x 3.6 x 2.7cm 3.8cm 2021 - 4.4 x 3.4 x 2.7 2022 [facility] Other 12-18-2023 Evaluation note* Encounter Date Diagnosis [...] use, the patient reduces the risk for NH, CVA, HTN, cardiac dysrhythmias and sudden cardiac [...] S/P cervical spinal fusion (ICD-10 - Z98.1) [facility] 08-17-2023 Evaluation note* Encounter Date Diagnosis Assessment Notes Treatment Notes Treatment Clinical Notes May, Lateral epicondylitis, right elbow (ICD-10 - M77.11) [facility] 06-30-2023 Evaluation note* Encounter Date Diagnosis Assessment Notes Treatment Notes Treatment Clinical Notes Mar, Pure hypercholestero lemia (ICD-10 - E78.00) [facility] 04-28-2023 NotePROCEDURE: XR FOOT LT MIN 3 VIEWS HISTORY: Pain ; left heel pain for 6 weeks COMPARISON: None. FINDINGS: BONES:No fracture, acute abnormality, or significant arthropathy. SOFT TISSUES:No visible soft tissue swelling. EFFUSION:None visible. OTHER: Negative. IMPRESSION: 1. Normal examination. Electronically authenticated by: SIMON RED Date: 2023-02-04 07:[address] [place], [place] [id number] Evaluation note* Encounter Date Diagnosis Assessment Notes [...] use, the patient reduces the risk for NH, CVA, HTN, cardiac dysrhythmias and sudden cardiac [...] (prost ate specific antigen) (ICD-10 - Z12.5) [facility] 03-08-2023 Evaluation note* Encounter Date Diagnosis Assessment Notes Treatment Notes Treatment Clinical Notes Dec, Controlled type 2 diabetes mellitus with hyperglycemia, without long-term current use of insulin (ICD-10 - E11.65) [facility] 02-23-2023 Evaluation note* Encounter Date Diagnosis [...] [ ] Infections may elevate BS temporarily [facility] 02-23-2023 Evaluation note* Encounter Date Diagnosis Assessment Notes Treatment Notes Treatment Clinical Notes Nov, Acute bronchitis due to other specified organisms (ICD-10 - J20.8) [facility] Other 07-15-2021 NoteChief Complaint referral for suprapubic [...] Stopped age 49 Years., (more content not included)...[facility]Comment [facility] above:Result Comment: Electronically Signed By: KIYA DIAZ, Reji Anderson.arian\Date and Time Signed: 04/23/21 10:32 [id number] NoteGastroenterology Upper Endoscopy, Adult Upper endoscopy is [...] including vitamins, herbs, eye drops, creams, and arhe-zqm-amnflny medicines. ? Any problems you or family [...] tells you to take them. ? Taking gdhk-qwp-[id number] medicines, vitamins, herbs, and supplements. General instructions [...] Document Released: 09/23/2001 [employer] (more content not included)...[facility] HospitalEvaluation noteNo Load [facility] [employer] Other Evaluation note* Diagnosis Onset Date Resolution Status Hypercholesterolemia acute Hypertension acute Obesity acute KATHIE (obstructive sleep apnea) acute Thyroid nodule acute Type 2 diabetes mellitus with hyperglycemia acute [facility] Work Phone: Evaluation note* Diagnosis Right bicipital tenosynovitis Impingement syndrome of right shoulder region [facility] Diagnosis Onset Date Resolution Status Admit Date Hypercholesterolemia acute Neel 2024 8:53am Hypertension acute October 8:53am Obesity acute October 29, 2024 8:53am KATIHE (obstructive sleep apnea) acute October 29, 2024 8:53am Thyroid nodule acute October 292024 8:53am Type 2 diabetes mellitus wit h hyperglycemia acute October 29 8:53am [facility] Work Phone: Evaluation note* Diagnosis Impingement syndrome of right shoulder- Primary Right bicipital tenosynovitis Impingement syndrome of right shoulder region Biceps tendinitis of right upper extremity [facility]* Diagnosis Right bicipital tenosynovitis Impingement syndrome of right shoulder region [facility]* Diagnosis Chronic, continuous use of opioids- Primary Right bicipital tenosynovitis Impingement syndrome of right shoulder region [facility]* Diagnosis Biceps tendinitis of right upper extremity- Primary Right bicipital tenosynovitis Impingement syndrome of right shoulder region Chronic, continuous use of opioids Impingement syndrome of right shoulder [facility]* Diagnosis Bicipital tendinitis of right shoulder- Primary documented in this encounter [facility] [facility] Right bicipital tenosynovitis Impingement syndrome of right shoulder region documented [facility] Diagnosis Biceps tendinitis of right upper extremity- Primary Impingement syndrome of right shoulder documented [facility] Diagnosis Right bicipital tenosynovitis Impingement syndrome of right shoulder region documented [facility] N[facility]ative - Reported* Type Description [...] Colonoscopy 11/2015 Hospitalization History see surgical history [facility] general Narrative - Reported* Type Description Date [...] Colonoscopy 11/2015 Hospitalization History see surgical history [facility] Other InstructionsNot on filedocumented in this encounter [...] 1 Thyroid nodule (E04. 1) Referral Organization [facility] Referring Provider First Name Andres Referring Provider Last Name Yemi Referring Provider Specialty Internal Nh dicine Referred Organization [facility] Referred Provider Marivel Dasilva Referred Address ,[place], [place],[address] Referred Provider Specialty Ear, Nose an d [...] Include all three th yroid US reports [facility] Other Summary Purpose Family History Relationship Condition [...] Diagnosis 2 Cervical spondylosis (M47.812) Referral Organization [facility] Referring Provider First Name Andres Referring Provider Last Name Yemi Referring Provider Specialty Internal Me dicine Referred Organization [facility] Referred Provider Cade Stephenson Referred Address [address], [place],[address] Referred Provider Specialty Pain Medicin e Referral Priority Routine General Notes Mr. Trujillo has hx o f ACDF w/ recent increase in neck pain. His MRI does not correlate with his symptoms and is being referred for treatment La Nena Carrion 10/11/2023 07:19:30 AM >received today, attachments made, notes locked, referral faxed Clinical Notes Include MRI neck f: [id number] Reason Patient being referr ed for neck discomfort Diagnosis 1 Strain of neck muscl e, initial encounter (S16.1XXA) Diagnosis 2 Cervical spondylosis (M47.812) Referral Organization [facility] Referring Provider First Name Andres Referring Provider Last Name Yemi Referring Provider Specialty Internal Nh dicine Referred Organization [facility] Referred Address [address], [place],[address] Referred Provider Specialty Pain Medicin e Referral [...] CREATED AUTHOR AUTHOR'S ORGANIZ ATION 03/18/2023 [facility] DATE CREATED AUTHOR AUTHOR'S ORGANIZ ATION 12/28/2023 [facility] EPIC DATE CREATED AUTHOR AUTHOR'S ORGANIZ ATION 11/16/2024 [facility] REASON FOR VISIT (unrecogniz ed section and [...] June 26, 2024 End: June 26, 2024 [employer] Relationship Specialty Start Date End Date Andres Bragg DO [address] [place] [address] PCP - General 04/13/17 [employer] Relationship Specialty Start Date End Date Andres Bragg DO [address] [place] [address] PCP - General 04/13/17 [employer] Relationship Specialty Start Date End Date Andres Bragg DO [address] [place] [address] PCP - General 04/13/17 [employer] Relationship Specialty Start Date End Date Andres Bragg DO [address] [facility] [place] [address] PCP - General 04/13/17 [employer] Relationship Specialty Start Date End Date Andres Bragg DO [address] [facility] [place] [address] PCP - General 04/13/17 [employer] Relationship Specialty Start Date End Date Andres Bragg DO [address] [facility] [place] [address] PCP - General 04/13/17 [employer] Relationship Specialty Start Date End Date Andres Bragg DO [address] [facility] [place] [address] PCP General 04/13/17 [employer] Relationship Specialty Start Date End Date Andres Bragg DO [address] [facility] [place] [address] PCP General 04/13/17 [employer] Relationship Specialty Start Date End Date Andres Bragg DO [address] [place] [address] [facility] General 04/13/17 Goals (unrecognized section and [...] BE BASED ON THE PRIMARY CLINICAL RECORDS. [facility] [employer] [facility]. provides no warranty or guarantee of the accuracy or completeness of information in this document.
== END 2025-03-06 07:27 | disposition home or self-care (01) ==
LOC: US 07:26
PROVIDERS: PCP Internal Medicine; Visit Provider Otolaryngology
DX: E04.1 Nontoxic single thyroid nodule (principal)
CPT/HCPCS: 76536